=== PATIENT | female | born 1965 | race Caucasian/White ===

== ENCOUNTER 2017-10-02 06:31 | Emergency (ER) | payer SELFPAY ==
[~2017-10-02] VITALS: Ht 147.3 cm; Wt 77.6 kg
[2017-10-02] MEDS ORDERED: MORPHINE SULFATE 5 MG/ML VIAL IV ONE (07:30)
[2017-10-02] MEDS ORDERED: ONDANSETRON HCL INJ 2 MG/ML VIAL IV STA (07:30)
[2017-10-02] MEDS ORDERED: SODIUM CHLORIDE 0.9% 1000ML 1,000 ML IV STA (07:30)
[2017-10-02] MEDS ORDERED: KETOROLAC TROMETHAMINE 30 MG/ML VIAL IV STA (07:38)
[2017-10-02] MEDS ORDERED: MORPHINE SULFATE 2 MG/ML SYR IV STA (07:44)
[2017-10-02 08:10] LABS: BASOPHILS # (AUTO) 0.1 (0.0-0.1); BASOPHILS % 0.5 % (0.0-1.0); BILIRUBIN,URINE NEGATIVE (NEGATIVE); CLARITY,URINE CLOUDY (CLEAR); COLOR,URINE YELLOW (YELLOW); EOSINOPHILS # (AUTO) 0.1 (0.0-0.4); HEMATOCRIT 39.9 % (34.2-44.1); HEMOGLOBIN 13.3 g/dL (12.0-16.0); KETONES,URINE TRACE (NEGATIVE); LEUKOCYTE ESTERASE ,URINE NEGATIVE (NEGATIVE); LYMPHOCYTES # (AUTO) 1.2 (1.0-3.2); LYMPHOCYTES % 12.8 % (18.0-39.1); MEAN CORPUSCULAR HEMOGLOBIN 32.3 pg (28-32); MEAN CORPUSCULAR HGB CONC 33.3 g/dL (31-35); MEAN CORPUSCULAR VOLUME 96.8 fL (81-99); MONOCYTES # (AUTO) 0.4 (0.2-0.8); MONOCYTES % 4.6 % (4.4-11.3); NEUTROPHILS # (AUTO) 7.7 (2.1-6.9); NEUTROPHILS % 80.5 % (38.7-80.0); NITRITE,URINE NEGATIVE (NEGATIVE); PLATELET COUNT 234 x10e3/uL (140-360); RED BLOOD COUNT 4.12 x10e6/uL (3.6-5.1); RED CELL DISTRIBUTION WIDTH 12.8 % (11.7-14.4); URINE UROBILINOGEN 0.2 mg/dL (0.2 - 1)
[2017-10-02 08:13] LABS: PROTEIN,URINE DIPSTICK 1+ (NEGATIVE)
[2017-10-02 08:20] LABS: INR 0.91; PROTHROMBIN TIME 12.7 seconds (11.9-14.5)
--- NOTE | 2017-10-02 08:23 | Diagnostic Imaging Report ---
PROCEDURE: CT ABDOMEN AND PELVIS WITHOUT CONTRAST COMPARISON:None. INDICATIONS:Right flank pain TECHNIQUE: Stone protocol Volumetric CT abdomen and pelvis. No intravenous or enteric contrast. Multiplanar reformatted images. DLP: 587.38 FINDINGS: Mild bibasilar subsegmental atelectasis. Mild vascular congestion. No pleural effusions. Normal heart size. Liver: Midclavicular craniocaudal span 19 cm. Otherwise, normal. Gallbladder: Normal Pancreas: Normal Spleen: Normal Adrenal glands: Normal Urinary bladder: Decompressed by Grover catheter Uterus and adnexa: Calcified uterine fibroids. Otherwise, normal Kidneys: Right: Mild caliectasis and trace hydroureter. 3 mm stone in the distal right ureter (image 153, series 3) approximately 2.5 cm from the urinary bladder. The stone does not completely fill the ureter, suggesting stone fragmentation. Otherwise, normal. No additional stones. Left: Normal. No stones. Bowel: Normal caliber. Normal appendix. Peritoneum: Normal Skeleton: Intact. Multilevel degenerative disc disease most notable at L2-L3 there is near-complete loss of disc space height. Soft tissues: Normal CONCLUSION: 1. 3 mm stone in the distal right ureter. The stone does not completely fill the ureter, suggesting stone fragmentation. 2. Hepatomegaly. Dictated by: Kenneth Gregory M.D. on 10/02/2017 at 8:33 Electronically approved by: Kenneth Gregory M.D. on 10/02/2017 at 8:33
[2017-10-02 08:24] LABS: AMORPHOUS SEDIMENT,URINE MODERATE (FEW); BACTERIA,URINE MODERATE /HPF; EPITHELIAL CELLS,URINE FEW /LPF; RBC,URINE >50 /HPF (0-5)
[2017-10-02 08:30] LABS: ALANINE AMINOTRANSFERASE 33 IU/L (0-55); ALBUMIN 3.8 g/dL (3.5-5.0); ALBUMIN/GLOBULIN RATIO 1.1 (0.8-2.0); ALKALINE PHOSPHATASE 56 IU/L (40-150); ANION GAP 14.7 mmol/L (8-16); BLOOD UREA NITROGEN 13 mg/dL (7-26); BUN/CREATININE RATIO 15 (6-25); CALCIUM 8.8 mg/dL (8.4-10.2); CARBON DIOXIDE 24 mmol/L (22-29); CHLORIDE 106 mmol/L (98-107); CREATININE, SERUM 0.86 mg/dL (0.57-1.11); EST GLOMERULAR FILTRATION RATE > 60 ML/MIN (60-); GLUCOSE 178 mg/dL (74-118); LIPASE 16 U/L (8-78); POTASSIUM 3.7 mmol/L (3.5-5.1); SODIUM 141 mmol/L (136-145)
[2017-10-02] MEDS ORDERED: CEFTRIAXONE SOD 1 GM VIAL IV SCH (08:45)
[2017-10-02] MEDS ORDERED: TYLENOL WITH C1 EACH PO (12:30)
[2017-10-02] MEDS ORDERED: PROMETHAZINE HC25 M1 PO (12:31)
[2017-10-02] MEDS ORDERED: CIPRO500 MG PO (12:31)
[2017-10-02] MEDS ORDERED: FLOMAX0.4 MG PO (12:31)
== END 2017-10-02 13:15 | disposition home or self-care (01) ==
LOC: ER 06:31
DX: R11.2 Nausea with vomiting, unspecified (principal); R10.9 Unspecified abdominal pain; N20.1 Calculus of ureter; N30.91 Cystitis, unspecified with hematuria; I10 Essential (primary) hypertension; E11.9 Type 2 diabetes mellitus without complications; E78.5 Hyperlipidemia, unspecified
CPT/HCPCS: 36415; 74176; 80053; 81001; 83690; 84702; 85025; 85610; 99284; J0696; J1885; J2270; J2405; J7030

== ENCOUNTER 2017-11-26 15:16 | Observation (INO) | payer SELFPAY ==
[~2017-11-26] VITALS: Ht 147.3 cm; Wt 77.6 kg
[~2017-11-26 15:16] MED LIST: CIPRO500 MG PO; FLOMAX0.4 MG PO; PROMETHAZINE HC25 M1 PO; TYLENOL WITH C1 EACH PO
--- OUTSIDE RECORDS SUMMARY | 2017-11-26 15:17 | XMS REPORT | Continuity of Care Document ---
Author Author [facility] Organization [facility] Address [address] [place] [address] Phone Unavailable Care Team Providers Care Microbiology Soil Scientist Name Role Phone NO, PCP PCP Unavailable Advance Directives No advance directive information available. Problems No problem information available. Medications Current Home Medications Medication Dose Units Route Directions Days Qty Instructions Start Date Acetaminophen With Codeine (Tylenol With Codeine #3 Tablet) 1 Each Tablet 300 Mg Oral Every 6 Hours for Severe Pain 15 Tab 10/02/17 Ciprofloxacin Hcl (Cipro) 500 Mg Tablet 500 Mg Oral Twice A Day 10 Days 20 Tab 10/02/17 Promethazine Hcl 25 Mg Tablet 25 Mg Oral Every 6 Hours as needed for Nausea 20 Tab 10/02/17 Tamsulosin Hcl (Flomax*) 0.4 Mg Cap 0.4 Mg Oral Daily 10 Cap Social History No social history information available. Hospital Discharge Instructions No hospital discharge instruction information available. Plan of Care Discharge Date 10/02/17 1:15pm Disposition HOME, SELF-CARE Condition at Discharge Stable Instructions/Education Provided Kidney Stones Urinary Tract Infection - Women Forms Provided Work/School Excuse Prescriptions See Medication Section Referrals TERESO SMITH MD Address: [address] [place] [address] Additional Instructions/Education TAKE PRESCRIPTIONS DIRECTED. INCREASE FLUIDS. REST. CALL TODAY FOR APPOINTMENT WITH DR SMITH UROLOGY. STRAIN ALL URINE AND BRING STONE TO UROLOGY APPOINTMENT Functional Status No functional status information available. Allergies, Adverse Reactions, Alerts Allergen Type Severity Reaction Status Last Updated PENICILLIN Allergy Intermediate Active 10/02/17 Immunizations No immunization information available. Vital Signs Acute Vital Signs Vital Response Date/Time Height 4 ft 10 in 10/02/2017 6:41am Weight 171 lb 10/02/2017 6:41am Body Mass Index 35.7 kg/m^2 10/02/2017 6:41am Results Laboratory Results Test Name Result Units Flags Reference Collection Date/Time Result Date/ Time Comments White Blood Count 9.61 x10e3/uL 4.8-10.8 10/02/2017 7:00am 10/02/2017 8 :13am Red Blood Count 4.12 x10e6/uL 3.6-5.1 10/02/2017 7:00am 10/02/2017 8: 13am Hemoglobin 13.3 g/dL 12.0-16.0 10/02/2017 7:00am 10/02/2017 8:13am Hematocrit 39.9 % 34.2-44.1 10/02/2017 7:00am 10/02/2017 8:13am Mean Corpuscular Volume 96.8 fL 81-99 10/02/2017 7:00am 10/02/2017 8: 13am Mean Corpuscular Hemoglobin 32.3 pg H 28-32 10/02/2017 7:00am 2017 8:13am Mean Corpuscular Hemoglobin Concent 33.3 g/dL 31-35 10/02/2017 7:00am 10/02/2017 8:13am Red Cell Distribution Width 12.8 % 11.7-14.4 10/02/2017 7:00am 2017 8:13am Platelet Count 234 x10e3/uL 140-360 10/02/2017 7:00am 10/02/2017 8: 13am Neutrophils (%) (Auto) 80.5 % H 38.7-80.0 10/02/2017 7:00am 10/02/2017 8 :13am Lymphocytes (%) (Auto) 12.8 % L 18.0-39.1 10/02/2017 7:00am 10/02/2017 8 :13am Monocytes (%) (Auto) 4.6 % 4.4-11.3 10/02/2017 7:00am 10/02/2017 8: 13am Eosinophils (%) (Auto) 1.0 % 0.0-6.0 10/02/2017 7:00am 10/02/2017 8: 13am Basophils (%) (Auto) 0.5 % 0.0-1.0 10/02/2017 7:00am 10/02/2017 8:13am IM GRANULOCYTES % 0.6 % 0.0-1.0 10/02/2017 7:00am 10/02/2017 8:13am Neutrophils # (Auto) 7.7 H 2.1-6.9 10/02/2017 7:00am 10/02/2017 8: 13am Lymphocytes # (Auto) 1.2 1.0-3.2 10/02/2017 7:00am 10/02/2017 8:13am Monocytes # (Auto) 0.4 0.2-0.8 10/02/2017 7:00am 10/02/2017 8:13am Eosinophils # (Auto) 0.1 0.0-0.4 10/02/2017 7:00am 10/02/2017 8:13am Basophils # (Auto) 0.1 0.0-0.1 10/02/2017 7:00am 10/02/2017 8:13am Absolute Immature Granulocyte (auto 0.06 x10e3/uL 0-0.1 10/02/2017 7: 00am 10/02/2017 8:13am Prothrombin Time 12.7 seconds 11.9-14.5 10/02/2017 7:00am 10/02/2017 8: 27am Prothromb Time International Ratio 0.91 10/02/2017 7:00am 2017 8:27am Oral Anticoagulant Therapy INR Values: 1. Low Intensity Therapy 1.5 - 2.0 2. Moderate Intensity Therapy 2.0 - 3.0 3. High Intensity Therapy(1) 2.5 - 3.5 4. High Intensity Therapy(2) 3.0 - 4.0 5. Panic Value INR > 5.0 Urine Color YELLOW YELLOW 10/02/2017 7:00am 10/02/2017 8:13am Urine Clarity CLOUDY H CLEAR 10/02/2017 7:00am 10/02/2017 8:13am Urine Specific [place] 1.030 H 1.010-1.025 10/02/2017 7:00am 2017 8:13am Urine pH 5 5 - 7 10/02/2017 7:00am 10/02/2017 8:13am Urine Leukocyte Esterase NEGATIVE NEGATIVE 10/02/2017 7:00am 2017 8:13am Urine Nitrite NEGATIVE NEGATIVE 10/02/2017 7:00am 10/02/2017 8:13am Urine Protein 1+ H NEGATIVE 10/02/2017 7:00am 10/02/2017 8:13am Urine Glucose (UA) NEGATIVE NEGATIVE 10/02/2017 7:00am 10/02/2017 8: 13am Urine Ketones TRACE H NEGATIVE 10/02/2017 7:00am 10/02/2017 8:13am Urine Urobilinogen 0.2 mg/dL 0.2 - 1 10/02/2017 7:00am 10/02/2017 8: 13am Urine Bilirubin NEGATIVE NEGATIVE 10/02/2017 7:00am 10/02/2017 8: 13am Urine Blood 4+ H NEGATIVE 10/02/2017 7:00am 10/02/2017 8:13am Urine WBC 6-10 /HPF H 0-5 10/02/2017 7:00am 10/02/2017 8:24am Urine RBC >50 /HPF H 0-5 10/02/2017 7:00am 10/02/2017 8:24am Urine Bacteria MODERATE /HPF H NONE 10/02/2017 7:00am 10/02/2017 8:24am Urine Epithelial Cells FEW /LPF NONE 10/02/2017 7:00am 10/02/2017 8: 24am Urine Amorphous Sediment MODERATE H FEW 10/02/2017 7:00am 10/02/2017 8 :24am Sodium Level 141 mmol/L 136-145 10/02/2017 7:00am 10/02/2017 8:31am Potassium Level 3.7 mmol/L 3.5-5.1 10/02/2017 7:00am 10/02/2017 8:31am Chloride Level 106 mmol/L 98-107 10/02/2017 7:00am 10/02/2017 8:31am Carbon Dioxide Level 24 mmol/L 22-29 10/02/2017 7:00am 10/02/2017 8: 31am Anion Gap 14.7 mmol/L 8-16 10/02/2017 7:00am 10/02/2017 8:31am Blood Urea Nitrogen 13 mg/dL 7-26 10/02/2017 7:00am 10/02/2017 8:31am Creatinine 0.86 mg/dL 0.57-1.11 10/02/2017 7:00am 10/02/2017 8:31am BUN/Creatinine Ratio 15 6-25 10/02/2017 7:00am 10/02/2017 8:31am Estimat Glomerular Filtration Rate > 60 ML/MIN 60- 10/02/2017 7:00am 8:31am Ranges were taken from the National Kidney Disease Education Program and the National Kidney Foundation literature. Reference ranges: 60 or greater: Normal 16-59 (for 3 consecutive months): Chronic kidney disease 15 or less: Kidney failure Glucose Level 178 mg/dL H 74-118 10/02/2017 7:00am 10/02/2017 8:31am Calcium Level 8.8 mg/dL 8.4-10.2 10/02/2017 7:00am 10/02/2017 8:31am Total Bilirubin 0.5 mg/dL 0.2-1.2 10/02/2017 7:00am 10/02/2017 8:31am Aspartate Amino Transf (AST/SGOT) 19 IU/L 5-34 10/02/2017 7:00am 2017 8:31am Alanine Aminotransferase (ALT/SGPT) 33 IU/L 0-55 10/02/2017 7:00am 09/2017 8:31am Total Protein 7.3 g/dL 6.5-8.1 10/02/2017 7:00am 10/02/2017 8:31am Albumin 3.8 g/dL 3.5-5.0 10/02/2017 7:00am 10/02/2017 8:31am Globulin 3.5 g/dL 2.3-3.5 10/02/2017 7:00am 10/02/2017 8:31am Albumin/Globulin Ratio 1.1 0.8-2.0 10/02/2017 7:00am 10/02/2017 8: 31am Alkaline Phosphatase 56 IU/L 40-150 10/02/2017 7:00am 10/02/2017 8: 31am Lipase 16 U/L 8-78 10/02/2017 7:00am 10/02/2017 8:31am Human Chorionic Gonadotropin, Qual NEGATIVE NEGATIVE 10/02/2017 7: 00am 10/02/2017 8:30am Procedures Procedure Status Date Provider(s) CT of abdomen and pelvis without contrast Active 10/02/17 ASUNCION BARRETT MD Encounters Encounter Location Arrival/Admit Date Discharge/Depart Date Attending Provider Departed Emergency Room [facility] 10/02/17 6:31am 1:15pm ASUNCION BARRETT MD
--- OUTSIDE RECORDS SUMMARY | 2017-11-26 15:17 | XMS REPORT ---
Author Author [facility] Address Unknown Phone Unavailable Care Team Providers Care Contour Stitcher Name Role Phone ASUNCION BARRETT Unavailable Unavailable Problems This patient has no known problems. Allergies, Adverse Reactions, Alerts This patient has no known allergies or adverse reactions. Medications This patient has no known medications. Results Test Description Test Time Test Comments Text Results Atomic Results Result Comments CT ABDOMEN/PELVIS WO [place] [address] Patient Name: KAMINI BAEZ MR #: [id number] : 1965 Age/Sex: 52/F Req #: [id number] Adm Physician: Ordered by: ASUNCION BARRETT MD Report #: [id number] Location: ER Room/Bed: Procedure: [id number] CT/CT ABDOMEN/PELVIS WO Exam Date: 10/02/17 Exam Time: 0750 REPORT STATUS: Signed PROCEDURE: CT ABDOMEN AND PELVIS WITHOUT CONTRAST COMPARISON: None. INDICATIONS: Right flank pain TECHNIQUE: Stone protocol Volumetric CT abdomen and pelvis. No intravenous or enteric contrast. Multiplanar reformatted images. DLP: 587.38 FINDINGS: Mild bibasilar subsegmental atelectasis. Mild vascular congestion. No pleural effusions. Normal heart size. Liver: Midclavicular craniocaudal span 19 cm. Otherwise, normal. Gallbladder: Normal Pancreas: Normal Spleen: Normal Adrenal glands: Normal Urinary bladder: Decompressed by Grover catheter Uterus and adnexa: Calcified uterine fibroids. Otherwise, normal Kidneys: Right: Mild caliectasis and trace hydroureter. 3 mm stone in the distal right ureter (image 153, series 3) approximately 2.5 cm from the urinary bladder. The stone does not completely fill the ureter, suggesting stone fragmentation. Otherwise, normal. No additional stones. Left: Normal. No stones. Bowel: Normal caliber. Normal appendix. Peritoneum: Normal Skeleton: Intact. Multilevel degenerative disc disease most notable at L2-L3 there is near-complete loss of disc space height. Soft tissues: Normal CONCLUSION: 1. 3 mm stone in the distal right ureter. The stone does not completely fill the ureter, suggesting stone fragmentation. 2. Hepatomegaly. Dictated by: Liliana Gregory M.D. on 10/02/2017 at 8:33 Electronically approved by: Liliana Gregory M.D. on 10/02/2017 at 8:33 Dictated By : LILIANA GREGORY MD 2 Transcribed By: ROCÍO on 10/02/17832 COPY TO: ASUNCION BARRETT MD
[2017-11-26] MEDS ORDERED: SODIUM CHLORIDE 0.9% 1000ML 1,000 ML IV STA ×2 (16:20→18:03)
[2017-11-26] MEDS ORDERED: IBUPROFEN 400 MG TAB PO STA (16:20)
[2017-11-26 16:41] LABS: BILIRUBIN,URINE NEGATIVE (NEGATIVE); CLARITY,URINE HAZY (CLEAR); COLOR,URINE YELLOW (YELLOW); KETONES,URINE NEGATIVE (NEGATIVE); LEUKOCYTE ESTERASE ,URINE 1+ (NEGATIVE); NITRITE,URINE NEGATIVE (NEGATIVE); PROTEIN,URINE DIPSTICK 1+ (NEGATIVE); URINE UROBILINOGEN 0.2 mg/dL (0.2 - 1)
--- NOTE | 2017-11-26 16:46 | Diagnostic Imaging Report ---
PROCEDURE: X-RAY CHEST, TWO VIEWS COMPARISON: None. INDICATIONS: LOW BLOOD PRESSURE FINDINGS: LUNGS: Small focus of atelectasis/scar in the base of the right lung. No consolidation or mass. Vascular markings are normal. PLEURA: No effusions or pneumothorax. HEART \T\ MEDIASTINUM: The heart is within normal size-limits. BONES \T\ SOFT TISSUES: No focal osseous lesions. Soft tissues are unremarkable. CONCLUSION: No acute thoracic abnormality. Dictated by: Milena Smith M.D. on 11/26/2017 at 16:46 Electronically approved by: Milena Smith M.D. on 11/26/2017 at 16:46
[2017-11-26 16:55] LABS: EPITHELIAL CELLS,URINE MANY /LPF
[2017-11-26 16:57] LABS: BACTERIA,URINE MODERATE /HPF
[2017-11-26 17:15] LABS: BASOPHILS # (AUTO) 0.1 (0.0-0.1); BASOPHILS % 0.8 % (0.0-1.0); EOSINOPHILS % 0.2 % (0.0-6.0); HEMATOCRIT 39.6 % (34.2-44.1); HEMOGLOBIN 13.9 g/dL (12.0-16.0); LYMPHOCYTES # (AUTO) 0.2 (1.0-3.2); LYMPHOCYTES % 2.9 % (18.0-39.1); MEAN CORPUSCULAR HGB CONC 35.1 g/dL (31-35); MEAN CORPUSCULAR VOLUME 91.2 fL (81-99); MONOCYTES # (AUTO) 0.2 (0.2-0.8); MONOCYTES % 3.6 % (4.4-11.3); NEUTROPHILS % 90.7 % (38.7-80.0); PLATELET COUNT 204 x10e3/uL (140-360); RED BLOOD COUNT 4.34 x10e6/uL (3.6-5.1); RED CELL DISTRIBUTION WIDTH 12.5 % (11.7-14.4)
[2017-11-26 17:20] LABS: INR 1.16; PROTHROMBIN TIME 13.9 seconds (11.9-14.5)
[2017-11-26 17:21] LABS: PARTIAL THROMBOPLASTIN TIME 24.9 seconds (23.8-35.5)
[2017-11-26 17:26] LABS: CREATINE KINASE 73 IU/L (29-168)
[2017-11-26 17:28] LABS: ALBUMIN 3.3 g/dL (3.5-5.0); ALBUMIN/GLOBULIN RATIO 0.7 (0.8-2.0); ANION GAP 17.3 mmol/L (8-16); CALCIUM 9.5 mg/dL (8.4-10.2); CREATININE, SERUM 1.31 mg/dL (0.57-1.11); POTASSIUM 3.3 mmol/L (3.5-5.1)
[2017-11-26] MEDS ORDERED: CEFTRIAXONE SOD 1 GM VIAL IV SCH (18:15)
[2017-11-26 18:47] LABS: BAND NEUTROPHILS % (MANUAL) 13 %; LYMPHOCYTES % (MANUAL) 2 % (19-48); MONOCYTES % (MANUAL) 5 % (3.4-9.0); NEUTROPHILS % (MANUAL) 79 % (40-74)
[2017-11-26 18:49] LABS: PLATELET ESTIMATE ADEQUATE; PLATELET MORPHOLOGY COMMENT NORMAL; RBC MORPHOLOGY COMMENT NORMAL
[2017-11-26] MEDS ORDERED: ONDANSETRON HCL INJ 2 MG/ML VIAL IV PRN (19:15)
[2017-11-26] MEDS ORDERED: MORPHINE SULFATE 2 MG/ML SYR IV PRN (19:15)
[2017-11-26] MEDS: SODIUM CHLORIDE 0.9% 1000ML 1,000 ML IV SCH (20:35)
[2017-11-26 21:56] VITALS: BP 97/50
[2017-11-26 22:00] VITALS: BP 97/50
[2017-11-26 23:30] VITALS: BP 97/50
[2017-11-27] VITALS (7 sets, daily range): BP systolic 81–104; BP diastolic 44–59
[2017-11-27] MEDS ORDERED: CITALOPRAM HBR20 MG PO (00:27)
[2017-11-27] MEDS ORDERED: LISINOPRIL10 MG PO (00:27)
[2017-11-27] MEDS ORDERED: LEVOTHYROXINE75 MCG PO (00:27)
[2017-11-27] MEDS ORDERED: METFORMIN HCL850 MG PO (00:27)
[2017-11-27] MEDS: SODIUM CHLORIDE 0.9% 1000ML 1,000 ML IV SCH ×3 (03:59→15:14)
[2017-11-27] MEDS: CEFTRIAXONE SOD 1 GM VIAL IV SCH ×2 (05:26→17:09)
[2017-11-27 07:17] LABS: BASOPHILS % 0.6 % (0.0-1.0); HEMATOCRIT 33.1 % (34.2-44.1); HEMOGLOBIN 11.3 g/dL (12.0-16.0); LYMPHOCYTES # (AUTO) 0.6 (1.0-3.2); LYMPHOCYTES % 13.1 % (18.0-39.1); MEAN CORPUSCULAR HGB CONC 34.1 g/dL (31-35); MEAN CORPUSCULAR VOLUME 93.8 fL (81-99); MONOCYTES # (AUTO) 0.3 (0.2-0.8); MONOCYTES % 7.3 % (4.4-11.3); NEUTROPHILS # (AUTO) 3.6 (2.1-6.9); NEUTROPHILS % 77.1 % (38.7-80.0); PLATELET COUNT 161 x10e3/uL (140-360); RED BLOOD COUNT 3.53 x10e6/uL (3.6-5.1); RED CELL DISTRIBUTION WIDTH 12.8 % (11.7-14.4)
[2017-11-27 07:46] LABS: ANION GAP 12.4 mmol/L (8-16); CALCIUM 8.3 mg/dL (8.4-10.2); CREATININE, SERUM 0.98 mg/dL (0.57-1.11); POTASSIUM 4.4 mmol/L (3.5-5.1)
--- NOTE | 2017-11-27 10:56 | History and Physical ---
PRESENTING COMPLAINT: Lightheadedness and about to fall with low blood pressure. HISTORY OF PRESENT ILLNESS: A 52-year-old female was admitted from the ER with complaints of lightheadedness with low blood pressure. The patient states she had a cough with left earache. She was seen by Dr. Pineda, ENT specialist at [place] 4 days ago. She was prescribed some antibiotic along with ear drops. The patient did not improve. She had fever of 100.2 yesterday. She went to see Dr. Pineda at his office. At that time, she was found to have low blood pressure. She felt lightheaded. The patient was brought to the ER. The patient did not have any similar episode in the past. She denied any chest pain, palpitations, or shortness of breath along with these symptoms. The patient follows up with her PCP, Dr. Derek Schwartz. Was seen less than 1 month ago at the office as per the patient's statement. The patient denies any other complaints at the present time. She had mild dysuria. No hematuria. No diarrhea. REVIEW OF SYSTEMS CONSTITUTIONAL: Fever of 100.2 at home yesterday as per the patient's statement. HEENT: No visual disturbance. Left earache status post ENT evaluation. No discharge from the left ear. No nasal congestion. CARDIOVASCULAR: No chest pain, palpitations or shortness of breath. PULMONARY: No cough. No hemoptysis. GI: No diarrhea. No bloody stool or black stool. : No dysuria. No hematuria. The patient is postmenopausal. MUSCULOSKELETAL: Significant for . No joint pain. No joint swelling. No skin rash. No swelling. NEUROLOGICAL: Lightheadedness at presentation as per HPI. PAST MEDICAL ILLNESS: Nephrolithiasis in October [address] scan, hypertension, diabetes mellitus, type 2, hypothyroidism. PAST SURGERIES: Appendectomy, colonoscopy, knee surgery, sinus surgery, tonsillectomy. ALLERGIES: PENICILLIN AND SULFA. EXACT REACTION NOT KNOWN. HOME MEDICATIONS: As per med reconciliation sheet. SOCIAL HISTORY: The patient lives at home with her family, and father. She does not have any children. HABITS: No smoking, drinking or substance abuse history. FAMILY HISTORY: Negative for CAD. COMPUTER AIDED DESIGN OPERATOR HISTORY: The patient is postmenopausal. No children. She was never . She does not have any children. No history of miscarriage in the past. PHYSICAL EXAMINATION VITALS: BP 86/51, pulse 53, temp 96.2, T-max 99.1, respirations 16, SpO2 98% on room air. GENERAL: Alert and oriented and in no acute distress. HEENT: No pallor. NECK: No JVD. No carotid bruits. No lymphadenopathy. No thyromegaly. HEART: S1 and S2 regular. No murmurs. LUNGS: Clear to auscultation. ABDOMEN: Soft and nontender. No palpable mass. EXTREMITIES: No edema, cyanosis or clubbing. NEUROLOGICAL: Motor grossly equal on both sides. LABS: CBC: WBC 6.6, hemoglobin 13.92 and came down to 11.3, hematocrit 39, and platelets 204,000. MCV 91. Neutrophils 90, lymphocytes 2.9. PT 18.9, INR 1.16 and PTT 24.9. Chemistry panel: Sodium 137, potassium 4.4, chloride 102, CO2 27, anion gap 8, BUN 26, creatinine 0.98, glucose 221. Lactic acid 9.8. Calcium 8.3. Total bilirubin 0.5, AST 54, ALT 53, alk phos 59. Total protein 7.9, albumin 3.3, globulin 4.6. Urinalysis with protein 1+, ketones negative, nitrite negative, leukocyte esterase 1+, wbcs 11-20, rbcs 11-20, bacteria moderate. RADIOLOGICAL DATA: Chest x-ray single view with no acute abnormality. EKG was normal sinus rhythm with a rate of 85 beats per minute. No significant ST-T changes. ASSESSMENT AND PLAN 1. Lightheadedness with about to fall due to near syncope: Etiology not clear. The patient had a low-grade fever, but she is not septic. 2. The patient has urinary tract infection on urinalysis: Will continue the patient on intravenous Levaquin. Follow the culture report. 3. Sinus bradycardia with hypotension: Electrocardiogram did not show any significant abnormality. Will request a cardiology evaluation. Troponin was 0.001 at presentation. 4. Nephrolithiasis by history: The patient's computerized tomography scan showed urethral stone in October. Will have an ultrasound of the kidney and urinary bladder today. If needed, will consult urologist. 5. Dehydration: Continue intravenous hydration. 6. Diabetes mellitus, type 2: Continue the patient on sliding scale insulin along with regular medications. I will hold metformin for now. 7. Hypertension: Will hold antihypertensives in view of low blood pressure. 8. Deep venous thrombosis prophylaxis: Would suggest ambulation. Will start the patient on Lovenox subcutaneously. 9. Discharge planning: Will discharge the patient if cleared by the payroll services analyst tomorrow morning. Job#: [id number] ALAINA
--- NOTE | 2017-11-27 11:01 | Diagnostic Imaging Report ---
Examination: CT BRAIN WITHOUT CONTRAST History:Syncope. Dehydration. Generalized weakness. Comparison studies:None Technique: Axial images were obtained from the skull base to the vertex. Coronal and sagittal images reconstructed from the axial data. Intravenous contrast: None Findings: Scalp: No abnormalities. Bones: No fractures, blastic or lytic lesions. Brain sulci: Appropriate for age. Ventricles: Normal in size and configuration. No hydrocephalus. Extra-axial space: No abnormalities. Parenchyma: No abnormal densities. No masses, hemorrhage, or acute or chronic cortical based vascular insults.. Sellar/suprasellar region: No abnormalities. Craniocervical junction: Patent foramen magnum. No Chiari one malformation. Incidental findings: None. Impression: No intracranial abnormalities. Signed by: Dr. Maria M Centeno M.D. on 11/27/2017 10:57 AM
--- NOTE | 2017-11-27 12:31 | Diagnostic Imaging Report ---
PROCEDURE:US RETROPERITONEAL ( KIDNEY ). COMPARISON:CT abdomen and pelvis 10/02/2017. INDICATIONS:UTI/STONE TECHNIQUE: Mccabe-scale and color sonographic images of the bilateral kidneys and bladder where obtained in transverse and longitudinal planes. FINDINGS: RIGHT KIDNEY: 10.9 x 5.4 x 5.8 cm, cortex 2.2 cm Cysts: None. Solid masses: None. Stones: None. Hydronephrosis: None. Echogenicity: Normal. LEFT KIDNEY: 12.1 x 4.4 x 5.8 cm, cortex 1.6 cm Cysts: None. Solid masses: None. Stones: None. Hydronephrosis: None. Echogenicity: Normal. Bladder: Normal. Bilateral urinary jets are visualized. CONCLUSION: 1. Normal kidneys. 2. Incidental finding of diffuse hepatic steatosis. Dictated by: Prosper East M.D. on 11/27/2017 at 12:32 Electronically approved by: Prosper East M.D. on 11/27/2017 at 12:32
[2017-11-27] MEDS ORDERED: DEXTROSE 50% SYRINGE 50 ML IV PRN (14:15)
[2017-11-27] MEDS ORDERED: MORPHINE SULFATE 2 MG/ML SYR IV PRN (15:15)
[2017-11-27] MEDS: INSULIN LISPRO 100 UNIT/1 ML 3ML VIAL SQ SCH ×2 (17:09→20:22)
[2017-11-27] MEDS: ENOXAPARIN SOD INJ 40 MG/0.4 ML SYR SC SCH (17:09)
--- NOTE | 2017-11-27 18:52 | Consultation ---
DATE OF CONSULTATION: November 27, 2017 CARDIOLOGY CONSULTATION CHIEF COMPLAINT: The patient is a 52-year-old woman with dizziness and lightheadedness. HISTORY OF PRESENT ILLNESS: The patient is a 52-year-old woman who came to the emergency room with lightheadedness and low blood pressure. The patient reports low-grade fever and some coughing. The patient has no nausea, no vomiting, no diarrhea, no chest pain, no shortness of breath. PAST MEDICAL HISTORY: 1. Kidney stones. 2. Hypertension. 3. Diabetes mellitus. 4. Hypothyroidism. HOME MEDICATIONS: Synthroid, lisinopril, metformin. SOCIAL HISTORY: The patient does not drink and does not smoke. FAMILY HISTORY: There is no known family history of coronary artery disease. PHYSICAL EXAMINATION GENERAL: The patient is a well-nourished, well-developed female in no distress. VITAL SIGNS: Temperature 97.2, blood pressure 104/54. HEENT: The patient's cranium was normocephalic and atraumatic. Extraocular muscles were intact. Sclerae were anicteric. Pupils were equal, round, and reactive to light. NECK: Supple. No jugular venous distention. CHEST: Clear to auscultation and percussion. CARDIAC: Demonstrated normal S1 and S2 with no murmurs, rubs or gallops. ABDOMEN: Demonstrated good bowel sounds, no tenderness, and no masses. EXTREMITIES: No cyanosis, clubbing or edema. NEUROLOGIC: The patient was alert and oriented x3. Cranial nerves II-XII are intact. Motor strength was +5/+5 in all limbs. The patient's EKG demonstrated normal sinus rhythm with nonspecific ST and T wave changes. The patient's echocardiogram demonstrated normal left ventricular size and function. The patient's carotid Duplex report demonstrated no stenosis. IMPRESSION AND PLAN: The patient is a 52-year-old woman with lightheadedness and low blood pressure. This patient's symptoms appear to be consistent with volume depletion. I feel that the patient should be hydrated. If the patient's symptoms improve with hydration, then no further cardiac workup will be required. Job#: [id number] GH cc:MEET JC MD
[2017-11-27] MEDS: TAMSULOSIN HCL 0.4 MG CAP PO SCH (20:21)
[2017-11-27] MEDS: ATORVASTATIN 10 MG TAB PO SCH (20:21)
[2017-11-28] VITALS (9 sets, daily range): BP systolic 97–116; BP diastolic 53–59
[2017-11-28] MEDS: SODIUM CHLORIDE 0.9% 1000ML 1,000 ML IV SCH ×4 (00:56→21:43)
[2017-11-28] MEDS: CEFTRIAXONE SOD 1 GM VIAL IV SCH ×2 (05:29→17:41)
[2017-11-28] MEDS: LEVOTHYROXINE SODIUM 75 MCG TAB PO SCH (05:30)
[2017-11-28 07:17] LABS: BASOPHILS # (AUTO) 0.1 (0.0-0.1); BASOPHILS % 0.6 % (0.0-1.0); EOSINOPHILS % 0.5 % (0.0-6.0); HEMATOCRIT 32.9 % (34.2-44.1); HEMOGLOBIN 11.1 g/dL (12.0-16.0); LYMPHOCYTES # (AUTO) 1.3 (1.0-3.2); LYMPHOCYTES % 14.2 % (18.0-39.1); MEAN CORPUSCULAR HEMOGLOBIN 31.4 pg (28-32); MEAN CORPUSCULAR HGB CONC 33.7 g/dL (31-35); MEAN CORPUSCULAR VOLUME 93.2 fL (81-99); MONOCYTES # (AUTO) 0.5 (0.2-0.8); NEUTROPHILS # (AUTO) 6.8 (2.1-6.9); NEUTROPHILS % 76.8 % (38.7-80.0); PLATELET COUNT 185 x10e3/uL (140-360); RED BLOOD COUNT 3.53 x10e6/uL (3.6-5.1); RED CELL DISTRIBUTION WIDTH 12.9 % (11.7-14.4)
[2017-11-28 07:44] LABS: % IRON SATURATION 6 % (15-50); ALANINE AMINOTRANSFERASE 41 IU/L (0-55); ALBUMIN 2.3 g/dL (3.5-5.0); ALBUMIN/GLOBULIN RATIO 0.7 (0.8-2.0); ALKALINE PHOSPHATASE 42 IU/L (40-150); ANION GAP 11.8 mmol/L (8-16); BLOOD UREA NITROGEN 15 mg/dL (7-26); BUN/CREATININE RATIO 16 (6-25); CALCIUM 8.3 mg/dL (8.4-10.2); CARBON DIOXIDE 24 mmol/L (22-29); CHLORIDE 103 mmol/L (98-107); CHOL/HDL RATIO 18.6 (3.0-3.6); CHOLESTEROL 167 MD/DL (0-199); CREATININE, SERUM 0.92 mg/dL (0.57-1.11); EST GLOMERULAR FILTRATION RATE > 60 ML/MIN (60-); GLUCOSE 176 mg/dL (74-118); HDL CHOLESTEROL 9 MG/DL (40-60); IRON 18 ug/dL (50-170); POTASSIUM 3.8 mmol/L (3.5-5.1); SODIUM 135 mmol/L (136-145); TOTAL IRON BINDING CAPACITY 277 ug/dL (261-478); TRANSFERRIN 198 mg/dL (180-382); TRIGLYCERIDES 573 MG/DL (0-149)
[2017-11-28 08:06] LABS: FERRITIN 436.86 ng/mL (4.63-204.00); HCG,QUANTITATIVE 1.23 mIU/mL (0-10); THYROID STIMULATING HORMONE 1.999 uIU/mL (0.350-4.940)
[2017-11-28] MEDS ORDERED: ACETAMINOPHEN 325 MG TAB PO PRN (08:45)
[2017-11-28] MEDS: PANTOPRAZOLE SOD 40 MG TABEC PO SCH (09:00)
[2017-11-28] MEDS ORDERED: ENOXAPARIN SOD INJ 60 MG/0.6 ML SYR SC SCH (09:00)
[2017-11-28] MEDS: INSULIN LISPRO 100 UNIT/1 ML 3ML VIAL SQ SCH ×4 (09:00→21:45)
[2017-11-28] MEDS: CITALOPRAM HYDROBROMIDE 20 MG TAB PO SCH (09:01)
[2017-11-28] MEDS: ASPIRIN 325 MG TAB PO SCH (09:01)
[2017-11-28 09:09] LABS: BAND NEUTROPHILS % (MANUAL) 2 %; EOSINOPHILS % (MANUAL) 1 % (0-7); LYMPHOCYTES % (MANUAL) 11 % (19-48); MONOCYTES % (MANUAL) 10 % (3.4-9.0); NEUTROPHILS % (MANUAL) 76 % (40-74)
[2017-11-28 09:10] LABS: PLATELET ESTIMATE ADEQUATE; PLATELET MORPHOLOGY COMMENT NORMAL; RBC MORPHOLOGY COMMENT NORMAL
[2017-11-28] MEDS: LEVOFLOXACIN 500MG/D5W 100ML 100 ML IV SCH (10:30)
[2017-11-28] MEDS: ENOXAPARIN SOD INJ 40 MG/0.4 ML SYR SC SCH (17:41)
[2017-11-28] MEDS: GEMFIBROZIL 600 MG TAB PO SCH (17:41)
[2017-11-28] MEDS ORDERED: GUAIFENESIN 200 MG/10 ML UDC PO PRN (18:15)
[2017-11-28] MEDS: TAMSULOSIN HCL 0.4 MG CAP PO SCH (21:44)
[2017-11-28] MEDS: ATORVASTATIN 10 MG TAB PO SCH (21:44)
[2017-11-29] VITALS: BP 89/52
[2017-11-29 00:40] VITALS: BP 89/52
[2017-11-29] MEDS: SODIUM CHLORIDE 0.9% 1000ML 1,000 ML IV SCH ×2 (03:46→09:32)
[2017-11-29 04:00] VITALS: BP 98/51
[2017-11-29] MEDS: CEFTRIAXONE SOD 1 GM VIAL IV SCH (06:04)
[2017-11-29] MEDS: LEVOTHYROXINE SODIUM 75 MCG TAB PO SCH (06:04)
[2017-11-29 07:30] LABS: BASOPHILS % 0.5 % (0.0-1.0); EOSINOPHILS # (AUTO) 0.1 (0.0-0.4); EOSINOPHILS % 1.3 % (0.0-6.0); HEMATOCRIT 31.3 % (34.2-44.1); HEMOGLOBIN 10.5 g/dL (12.0-16.0); LYMPHOCYTES # (AUTO) 1.8 (1.0-3.2); LYMPHOCYTES % 22.6 % (18.0-39.1); MEAN CORPUSCULAR HEMOGLOBIN 31.9 pg (28-32); MEAN CORPUSCULAR HGB CONC 33.5 g/dL (31-35); MEAN CORPUSCULAR VOLUME 95.1 fL (81-99); MONOCYTES # (AUTO) 0.5 (0.2-0.8); MONOCYTES % 6.9 % (4.4-11.3); NEUTROPHILS # (AUTO) 5.1 (2.1-6.9); NEUTROPHILS % 64.9 % (38.7-80.0); PLATELET COUNT 196 x10e3/uL (140-360); RED BLOOD COUNT 3.29 x10e6/uL (3.6-5.1); RED CELL DISTRIBUTION WIDTH 13.2 % (11.7-14.4)
[2017-11-29] MEDS: GEMFIBROZIL 600 MG TAB PO SCH (07:30)
[2017-11-29] MEDS: PANTOPRAZOLE SOD 40 MG TABEC PO SCH (07:30)
[2017-11-29 07:51] VITALS: BP 97/51
[2017-11-29 07:52] LABS: ALANINE AMINOTRANSFERASE 31 IU/L (0-55); ALBUMIN/GLOBULIN RATIO 0.6 (0.8-2.0); ALKALINE PHOSPHATASE 40 IU/L (40-150); ANION GAP 11.6 mmol/L (8-16); BLOOD UREA NITROGEN 13 mg/dL (7-26); BUN/CREATININE RATIO 17 (6-25); CARBON DIOXIDE 24 mmol/L (22-29); CHLORIDE 105 mmol/L (98-107); CREATININE, SERUM 0.78 mg/dL (0.57-1.11); EST GLOMERULAR FILTRATION RATE > 60 ML/MIN (60-); GLUCOSE 139 mg/dL (74-118); POTASSIUM 3.6 mmol/L (3.5-5.1); SODIUM 137 mmol/L (136-145)
[2017-11-29] MEDS: ASPIRIN 325 MG TAB PO SCH (09:31)
[2017-11-29] MEDS: CITALOPRAM HYDROBROMIDE 20 MG TAB PO SCH (09:31)
[2017-11-29] MEDS: INSULIN LISPRO 100 UNIT/1 ML 3ML VIAL SQ SCH ×2 (09:32→12:14)
[2017-11-29] MEDS: LEVOFLOXACIN 500MG/D5W 100ML 100 ML IV SCH (09:32)
[2017-11-29 10:28] LABS: BAND NEUTROPHILS % (MANUAL) 2 %; EOSINOPHILS % (MANUAL) 8 % (0-7); LYMPHOCYTES % (MANUAL) 20 % (19-48); MONOCYTES % (MANUAL) 8 % (3.4-9.0); NEUTROPHILS % (MANUAL) 60 % (40-74); PLATELET ESTIMATE ADEQUATE; PLATELET MORPHOLOGY COMMENT NORMAL; RBC MORPHOLOGY COMMENT NORMAL
[2017-11-29 12:00] VITALS: BP 96/51
[2017-11-29] MEDS ORDERED: ACIDOPHILUS LA1 EACH PO (13:45)
[2017-11-29] MEDS ORDERED: OMEPRAZOLE40 MG PO (13:46)
[2017-11-29] MEDS ORDERED: GEMFIBROZIL600 MG PO (13:48)
[2017-11-29] MEDS ORDERED: FOLIC ACID1 MG PO (13:48)
[2017-11-29] MEDS ORDERED: FERROUS SULFAT325 M1 PO (13:50)
--- NOTE | 2017-11-29 15:00 | Discharge Summary ---
FINAL DIAGNOSES 1. Hypotension with near syncope, resolved. 2. Urinary tract infection. 3. Fever, resolved. 4. Sinus bradycardia, resolved. 5. Nephrolithiasis by history. Repeat ultrasound negative. 6. Dehydration. 7. Diabetes mellitus. 8. Normocytic anemia, positive for occult blood in stool. 9. Hypothyroidism. 10. Hyperlipidemia. 11. Hypertriglyceridemia. 12. Left otitis externa. 13. Fatty liver. BRIEF HOSPITAL COURSE: A 52-year-old female who was admitted from the ER. The patient was sent to the ER from the office of Dr. Edi Pineda, ENT specialist, for lightheadedness and hypotension. The patient was found having UTI at presentation, and did not have any leukocytosis, but she spiked fever the next day to 101.8. Blood culture and urine culture negative. Urinalysis showed UTI. The patient was continued on IV fluids. Her blood pressure was still systolic pressure low. She was on lisinopril, which was kept on hold. Dr. Pineda was consulted. He recommended need for ENT intervention at the present time. She has left otitis externa. She was prescribed Floxin otic by Dr. Pineda. The patient was continued empirically on IV antibiotics of Rocephin and levofloxacin. She is afebrile more than 24 hours. The patient asked to go home today. She has also drop in her hemoglobin. Stool for occult blood was positive. The patient does not have any abdominal pain, nausea or vomiting, black stool or blood in stool. She had EGD and colonoscopy in [address] Chacon, as per her statement, was normal at that time. The patient wants to go home today. The patient is discharged home with the instruction for avoidance of any NSAIDs and follow up with Dr. Chacon for anemia. The patient's hospitalization was otherwise uneventful during this hospital stay. PHYSICAL EXAMINATION VITAL SIGNS: Blood pressure 97/51, pulse 74, temperature 98.2, respirations 18, SPO2 of 100% on room air. GENERAL: Alert and oriented and in no acute distress. HEENT: No pallor. NECK: No JVD. No carotid bruits. No lymphadenopathy. No thyromegaly. HEART: S1 and S2 regular. No murmurs. LUNGS: Clear to auscultation. ABDOMEN: Soft and nontender. No palpable mass. EXTREMITIES: No edema, cyanosis or clubbing. NEUROLOGICAL: Motor grossly equal on both sides. LABORATORY DATA: WBC 7.87, hemoglobin 10, hematocrit 31, platelets 196, MCV 95, RDW 19, neutrophils 64, lymphocytes 22. PT 30, INR 1.16, PTT 24.9. Chemistry panel: Sodium 137, potassium 3.6, chloride 105, CO2 of 24, anion gap 8, BUN 13, creatinine 0.78, glucose 139, hemoglobin A1c 6.4. Lactic acid 10.5 and at presentation 19.9 . Calcium 8.0. Serum iron 18. TIBC is 277. Ferritin 436. Total bilirubin 0.2. AST 13, ALT 31, alkaline phosphatase 41. Troponin I is 0.001. CK MB 0.5. BNP 204. Total protein 5.0, albumin 2.0, globulin 3.3. Total cholesterol 167, triglycerides 573. HDL 9. Vitamin B12 of 719. Folate 12. TSH 1.99. SCG 1.23. A.m. cortisol level pending. Stool for occult blood positive. Influenza screening, A and B negative. Microbiology: Result of blood culture no growth in 48 hours. Urine culture no growth. Urinalysis: At presentation, protein 1+, negative for glucose, ketone, leukocyte esterase 1+, WBCs 11-20, RBCs 11-20. RADIOLOGICAL DATA: Chest x-ray single view at presentation negative for any acute abnormalities. Renal ultrasound normal kidneys with incidental finding of diffuse hepatic steatosis. CT of the head and brain without contrast done for syncopal episode, no intracranial abnormality. Carotid Doppler, official report pending. DISCHARGE MEDICATIONS: Please refer to the medication reconciliation sheet. DISCHARGE DIET: Diabetic and heart healthy diet. DISCHARGE ACTIVITY: As tolerated. FOLLOWUP INSTRUCTIONS: Infectious disease. Continue medication as per the discharge recommendations. Follow up with cardiology as available. Follow up with ENT specialist as available. Schedule with Dr. Chacon as an outpatient for anemia and positive occult blood in stool. Avoid OTC NSAIDs. Follow up with primary care physician, Dr. Derek Schwartz, in one week with home record of blood pressure. Monitor blood pressure and pulse b.i.d. at home. Hold blood pressure medication for now. Repeat CBC and BMP in one week. FANG GUTIERREZ MD Job#: [id number] [facility]
--- NOTE | 2017-11-29 16:05 | Consultation ---
DATE OF CONSULTATION: November 29, 2017 HOSPITAL CONSULTATION HISTORY OF PRESENT ILLNESS: I was kindly asked to see this 52-year-old woman, well known to me with outpatient evaluation and treatment. 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 She presented to the office with left-sided ear pain and was begun on topical therapy. She failed to respond and presented 2 days later and was noted to have altered mental status and subsequent blood pressure check showed her to be hypotensive. It was recommended she go directly to the emergency department for evaluation and treatment. This admission she has continued to have left-sided ear discomfort. Her history of present illness, past medical history, and past surgical history was reviewed in detail in the chart. PHYSICAL EXAMINATION HEENT: The right ash, external auditory canal, and tympanic membrane were normal. There was no postauricular pain, swelling, or tenderness. The left external auditory canal had [id number] amount of cerumen in the medial aspect. The visualized portion of the tympanic membrane was unremarkable. There was no postauricular pain, swelling, or tenderness. She has slight tenderness at the left temporomandibular joint. Nasal examination showed edema of the nasal mucosa. She had a long soft palate. There was minimal postnasal drainage. Oral cavity was otherwise normal. There was no palpable cervical adenopathy. ASSESSMENT: Otalgia. PLAN 1. Ofloxacin 5 drops in the left ear b.i.d. 2. No additional inpatient workup or therapy indicated at this time. 3. Patient is cleared for discharge from otolaryngology standpoint. Job#: [id number] ANNA
[2017-11-29] MEDS ORDERED: GEMFIBROZIL 600 MG TAB PO SCH (16:30)
[2017-11-29] MEDS ORDERED: OFLOXACIN 0.3% (OTIC SOL) 5 ML BTL OT SCH (17:00)
== END 2017-11-29 15:14 | disposition home or self-care (01) ==
LOC: ER 15:16 → ERHOLD 19:03 → MED/SURG 21:50
PROVIDERS: ADMIT Internal Medicine; ATTEND Internal Medicine
DX: A41.9 Sepsis, unspecified organism (principal); N39.0 Urinary tract infection, site not specified; E86.0 Dehydration; R05 Cough; I95.9 Hypotension, unspecified; E11.9 Type 2 diabetes mellitus without complications; I10 Essential (primary) hypertension; Z88.0 Allergy status to penicillin; Z88.2 Allergy status to sulfonamides; R55 Syncope and collapse; R00.1 Bradycardia, unspecified; H92.02 Otalgia, left ear; E03.9 Hypothyroidism, unspecified; N20.0 Calculus of kidney; D64.9 Anemia, unspecified
CPT/HCPCS: 36415 ×4; 70450; 71046; 76770; 80048; 80053 ×3; 80061; 81001; 82270; 82533; 82550; 82553; 82607; 82728; 82746; 82948 ×4; 83036; 83540; 83605 ×2; 83880; 84443; 84466; 84484; 84702; 85025 ×4; 85610; 85730; 87040 ×2; 87086; 87400; 93005; 93306; 93880; 97139; 99284; G0378 ×4; J0696 ×4; J1650 ×2; J1956 ×2; J2270; J2405; J7030 ×4

== ENCOUNTER 2020-05-13 18:14 | Emergency (ER) | payer SELFPAY ==
[~2020-05-13] VITALS: Ht 147.3 cm; Wt 77.6 kg
[~2020-05-13 18:14] MED LIST changes: +ACIDOPHILUS LA1 EACH PO; +CITALOPRAM HBR20 MG PO; +FERROUS SULFAT325 M1 PO; +FOLIC ACID1 MG PO; +GEMFIBROZIL600 MG PO; +LEVOTHYROXINE75 MCG PO; +LISINOPRIL10 MG PO; +METFORMIN HCL850 MG PO; +OMEPRAZOLE40 MG PO
[2020-05-13] MEDS ORDERED: ACETAMINOPHEN/CODEINE 300MG - 30MG TAB PO STA (18:24)
--- NOTE | 2020-05-13 18:26 | Emergency Department Note ---
History of Present Illnes History of Present Illness Chief Complaint: COVID PUI History of Present Illness This is a 55 year old female presents to the ED for SAGE myalgias, cough, n/v and fever. Seen at bedside Non-toxic appearing. . Historian: Patient Arrival Mode: Car Onset (how long ago): day(s) Severity: mild, moderate Onset quality: gradual Duration (how long): day(s) Timing of current episode: constant Progression: worsening Chronicity: new Context: Reports recent illness Relieving factors: none Exacerbating factors: none Associated symptoms: Reports cough, Reports fever/chills, Reports nausea/vomiting Treatments prior to arrival: none Past Medical/Family History Physician Review I have reviewed the patient's past medical and family history. Any updates have been documented here. Past Medical History Recent Fever: Yes Clinical Suspicion of Infectio: Yes New/Unexplained Change in Ment: No Past Medical History: Hyperlipedemia Other Medical History: HIGH CHOLESTEROL Other Surgery: BILATERAL KNEE SX COLONOSCOPY RIGHT WRIST SINUS SX Social History Smoking Cessation: Never Smoker Alcohol Use: None Any Illegal Drug Use: No Other Last Tetanus: UTD Review of Systems Review of Systems Constitutional: Reports fever EENTM: Reports no symptoms, Reports throat pain Cardiovascular: Reports no symptoms Respiratory: Reports cough Gastrointestinal: Reports no symptoms Genitourinary: Reports no symptoms Musculoskeletal: Reports no symptoms Integumentary: Reports no symptoms Neurological: Reports no symptoms Psychological: Reports no symptoms Endocrine: Reports no symptoms Hematological/Lymphatic: Reports no symptoms Physical Exam Related Data Allergies: Coded Allergies: Penicillins (Verified Allergy, Mild, ITCH, 05/13/20) Sulfa (Sulfonamide Antibiotics) (Verified Allergy, Mild, ITCH, 05/13/20) Triage Vital Signs Vital Signs Date Time Temp Pulse Resp B/P (MAP) Pulse Ox O2 Delivery O2 Flow Rate FiO2 05/13/20 18:17 102.9 109 20 118/78 97 Room Air Vital signs reviewed: Yes Physical Exam CONSTITUTIONAL Constitutional: Present well-developed, Present well-nourished HENT HENT: Present normocephalic, Present atraumatic, Present oropharynx clear/moist, Present nose normal HENT L/R: Present left ext ear normal, Present right ext ear normal EYES Eyes: Reports PERRL, Reports conjunctivae normal NECK Neck: Present ROM normal PULMONARY Pulmonary: Present effort normal, Present breath sounds normal CARDIOVASCULAR Cardiovascular: Present heart sounds normal, Present normal rate, Present tachycardia GASTROINTESTINAL Abdominal: Present soft, Present nontender, Present bowel sounds normal GENITOURINARY Genitourinary: Present exam deferred SKIN Skin: Present warm, Present dry MUSCULOSKELETAL Musculoskeletal: Present ROM normal NEUROLOGICAL Neurological: Present alert, Present oriented x 3, Present no gross motor or sensory deficits PSYCHOLOGICAL Psychological: Present mood/affect normal, Present judgement normal Results Imaging Imaging results reviewed: Yes Impressions [place] [address] Patient Name: KAMINI BAEZ MR #: [id number] : 1965 Age/Sex: 55/F Req #: [id number] Adm Physician: Ordered by: ROSI JERONIMO DO Report #: [id number] Location: ER Room/Bed: Procedure: [id number] DX/CHEST SINGLE (PORTABLE) Exam Date: 05/13/20 Exam Time: 2039 REPORT STATUS: Signed EXAMINATION: CHEST SINGLE (PORTABLE) INDICATION: Cough COMPARISON: Chest x-ray 11/26/2017 FINDINGS: TUBES and LINES: None. LUNGS: Normal lung volumes. Lungs are clear. No consolidations. PLEURA: No pleural effusion or pneumothorax. HEART AND MEDIASTINUM: The cardiomediastinal silhouette is unremarkable. BONES AND SOFT TISSUES: No acute osseous lesion. Soft tissues are unremarkable. UPPER ABDOMEN: No free air under the diaphragm. IMPRESSION: No acute thoracic radiographic abnormality. Signed by: Wallace Arnold DO on 05/13/2020 9:46 PM Dictated By: WALLACE ARNOLD DO 45 Transcribed By: LETTY on 05/13/202145 COPY TO: ROSI JERONIMO DO~ Critical Care Time Total Critical Care Time (min): 31 Critcal care necessary due to: sepsis Critcal care time spent by me: develop tx plan w patient/surrogate, examination of patient, obtaining hx from patient/surrogate, order/perform tx or interventions, order/review laboratory studies, order/review radiographic studies, pulse oximetry, re-evaluation of patient condition Assessment & Plan Medical Decision Making MDM Diff Dx : viral syndrome, Sepsis, COVID-19 infection , PNA Assessment & Plan Final Impression: (1) Person under investigation for COVID-19 (2) Severe sepsis Last Vital Signs Date Time Temp Pulse Resp B/P (MAP) Pulse Ox O2 Delivery O2 Flow Rate FiO2 05/13/20 18:17 102.9 109 20 118/78 97 Room Air Home Meds Active Scripts Tamsulosin Hcl* (FLOMAX*) 0.4 Mg Cap, 0.4 MG PO DAILY, #10 CAP 0 Refills Prov:XOCHITL REEDER MD 10/02/17 Ciprofloxacin Hcl (CIPRO) 500 Mg Tablet, 500 MG PO BID for 10 Days, #20 TAB 0 Refills Prov:XOCHITL REEDER MD 10/02/17 Promethazine Hcl (PROMETHAZINE HCL) 25 Mg Tablet, 25 MG PO Q6H PRN for NAUSEA, #20 TAB Prov:XOCHITL REEDER MD 10/02/17 Acetaminophen With Codeine (TYLENOL WITH CODEINE #3 TABLET) 1 Each Tablet, 300 MG PO Q6H for SEVERE PAIN, #15 TAB Prov:XOCHITL REEDER MD 10/02/17 Reported Medications Ferrous Sulfate (FERROUS SULFATE) 325 Mg Tablet.dr, 325 MG PO DAILY 11/29/17 Folic Acid (FOLIC ACID) 1 Mg Tablet, 1 MG PO DAILY, #30 TAB 11/29/17 Gemfibrozil (GEMFIBROZIL) 600 Mg Tablet, 600 MG PO BID 11/29/17 Omeprazole (OMEPRAZOLE) 40 Mg Capsule.dr, 40 MG PO DAILY 11/29/17 Lactobacillus Acidophilus (ACIDOPHILUS LACTOBACILLUS) 1 Each Capsule, 1 TAB PO BID 11/29/17 Citalopram Hydrobromide (CITALOPRAM HBR) 20 Mg Tablet, 10 MG PO DAILY, TAB 11/27/17 Levothyroxine Sodium (LEVOTHYROXINE SODIUM) 75 Mcg Tablet, 75 MCG PO DAILY, #30 TAB 11/27/17 Metformin Hcl (METFORMIN HCL) 850 Mg Tablet, 800 MG PO DAILY, #30 TAB 11/27/17 ROSI JERONIMO DO May 13, 2020 18:26
[2020-05-13] MEDS ORDERED: KETOROLAC TROMETHAMINE 60 MG/2 ML VIAL IM ONE (18:30)
--- OUTSIDE RECORDS SUMMARY | 2020-05-13 18:33 | XMS REPORT | Continuity of Care Document ---
Author Author [facility] t Organization [facility] Address [address] [place] [address] Phone Unavailable Care Team Providers Care Plumber Gasfitter Name Role Phone SKIP JC MD PCP Yeny JC Attphys Unavailable SWEET, A LAIRD Attphys Unavailable Yeny JC Admphys Unavailable Problems This patient has no known problems. Allergies, Adverse Reactions, Alerts Allergy Name Allergy Type Status Severity Reaction(s) Onset Date Inacti ve Date Treating Clinician Comments Source Penicillin Allergy to Substance Active Mild ITCH 2017-11-26 00:00:00 [facility] Sulfa (Sulfonamide Antibiotics) Allergy to Substance Active Mild ITCH 2017-11-26 00:00:00 [facility] Medications Ordered Medication Name Filled Medication Name Start Date Stop Da te Current Medication? Ordering Clinician Indication Dosage Frequency Signature (SIG) Comments Components Source Acetaminophen With Codeine (Tylenol With Codeine #3 Ta blet) 1 Each Tablet Acetaminophen With Codeine (Tylenol With Codeine #3 Tablet) 1 Each Tablet 2017-10-02 00:00:00 Yes Fanny Day Md 300 Every [address] [facility] Promethazine Hcl 25 Mg Tablet Promethazine Hcl 25 Mg Tablet 2017 00:00:00 Yes Fanny Day Md 25 Every 6 Hours as needed for Nausea [facility] Tamsulosin Hcl (Flomax*) 0.4 Mg Cap Tamsulosin Hcl (Flomax*) 0.4 Mg Cap 2017-10-02 00:00:00 Yes Fanny Day Md .4 Daily [facility] Ciprofloxacin Hcl (Cipro) 500 Mg Tablet Ciprofloxacin Hcl (C ipro) 500 Mg Tablet 2017-10-02 00:00:00 2017-10-12 00:00:00 No Fanny Day Md 500 Twice A Day [facility] Citalopram Hydrobromide (Citalopram Hbr) 20 Mg Tablet Citalopram Hydrobromide (Citalopram Hbr) 20 Mg Tablet Yes 10 Daily [facility] Ferrous Sulfate 325 Mg Tablet. Ferrous Sulfate 325 Mg Tablet. Yes 325 Daily [facility] Folic Acid 1 Mg Tablet Folic Acid 1 Mg Tablet Yes 1 Daily [facility] Gemfibrozil 600 Mg Tablet Gemfibrozil 600 Mg Tablet Yes [address] [facility] Lactobacillus Acidophilus (Acidophilus Lactobacillus) 1 Each Capsule Lactobacillus Acidophilus (Acidophilus Lactobacillus) 1 Each Capsule Yes 1 Twice A Day [facility] Levothyroxine Sodium 75 Mcg Tablet Levothyroxine Sodium 75 Mcg Tablet Yes 75 Daily [facility] Metformin Hcl 850 Mg Tablet Metformin Hcl 850 Mg Tablet Yes 800 Daily [facility] Omeprazole 40 Mg Capsule. Omeprazole 40 Mg Capsule. Yes 40 Daily [facility] Lisinopril 10 Mg Tablet, 12.5 Mg Oral Lisinopril 10 Mg Tablet, 1 2.5 Mg Oral 2017-11-29 00:00:00 No 12.5 Daily [facility] Levothyroxine Sodium 75 Mcg Tablet, 75 Mcg Oral Levoth yroxine Sodium 75 Mcg Tablet, 75 Mcg Oral 2017-11-27 00:00:00 No 75 [place] y [facility] Procedures Procedure Date / Time Performed Performing Clinician [facility] e Computed tomography of brain without radiopaque contrast 201 04-03-29 00:00:00 FANG GUTIERREZ [facility] Ultrasound, renal 2017-11-27 00:00:00 FANG GUTIERREZ [facility] X-ray of chest, two views 2017-11-26 00:00:00 JOSE L MADRIGAL V [facility] CT of abdomen and pelvis without contrast 2017-10-02 00:00:00 ASUNCION MASTERS [facility] Encounters Start Date/Time End Date/Time [facility] ID Source 2017-11-26 19:03:00 2017-11-29 15:14:00 Discharged Inpatient (obs) ER MEET [facility] [id number] [facility] 2017-10-02 06:31:00 2017-10-02 13:15:00 Departed Emergency Room ER ASUNCION [facility] [id number] [facility] Results Test Description Test Time Test Comments Results Result Comments Source Bedside Glucose 2017-11-29 12:31:00 Test Item Bedside Glucose (test code = 38636-3) 167 70-120 H Meter ID: [id number] Centertool Occult Blood 2017-11-29 10:34:00* Test Item Value Reference Range Interpretation Comments Stool Occult Blood (test code = 2335-8) POSITIVE NEGATIVE H [facility]Differential Total Cells Counted 2017-11-29 10:28:00* Test Item Value Reference Range Interpretation Comments Differential Total Cells Counted (test code = Differen tial Total Cells Counted) 100 [facility]Neutrophils % (Manual)2017-11-29 10:28:00 * Test Item Value Reference Range Interpretation Comments Neutrophils % (Manual) (test code = 10284-5) 60 40-74 [facility] HospitalBand Neutrophils %2017-11-29 10:28:00* Test Item Value Reference Range Interpretation Comments Band Neutrophils % (test code = 764-1) 2 [facility]Lymphocytes % (Manual)2017-11-29 10:28:00 * Test Item Value Reference Range Interpretation Comments Lymphocytes % (Manual) (test code = 737-7) 20 19-48 [facility]Monocytes % (Manual)2017-11-29 10:28:00* Test Item Value Reference Range Interpretation Comments Monocytes % (Manual) (test code = 744-3) 8 3.4-9.0 [facility]Eosinophils % (Manual)2017-11-29 10:28:00 * Test Item Value Reference Range Interpretation Comments Eosinophils % (Manual) (test code = 714-6) 8 0-7 H [facility] HospitalReactive Hkzdjmihzyd3541-90-97 10:28:00* Test Item Value Reference Range Interpretation Comments Reactive Lymphocytes (test code = 09946-0) 2 [facility] HospitalPlatelet Izwimopm0597-12-43 10:28:00* Test Item Value Reference Range Interpretation Comments Platelet Estimate (test code = 14292-4) ADEQUATE [facility] HospitalPlatelet Morphology Ryqpfua1919-46-91 10:28:00* Test Item Value Reference Range Interpretation Comments Platelet Morphology Comment (test code = 96881-3) NORMAL [facility] HospitalRed Cell Morphology Yczgsqz9615-63-54 10:28:00* Test Item Value Reference Range Interpretation Comments Red Cell Morphology Comment (test code = 6742-1) NORMAL [facility] Centerodium Vqqfu7627-96-90 08:00:00* Test Item Value Reference Range Interpretation Comments Sodium Level (test code = 2951-2) 137 136-145 [facility]Potassium Rghwg2296-18-49 08:00:00* Test Item Value Reference Range Interpretation Comments Potassium Level (test code = 2823-3) 3.6 3.5-5.1 [facility] HospitalChloride Ygiic5964-27-94 08:00:00* Test Item Value Reference Range Interpretation Comments Chloride Level (test code = 2075-0) 105 98-107 [facility] HospitalCarbon Dioxide Yqfpn6759-79-71 08:00:00* Test Item Value Reference Range Interpretation Comments Carbon Dioxide Level (test code = 2028-9) 24 22-29 [facility] HospitalAnion Uyq6534-60-64 08:00:00* Test Item Value Reference Range Interpretation Comments Anion Gap (test code = 97699-0) 11.6 8-16 [facility] HospitalBlood Urea Rdwvtdsq5814-33-92 08:00:00* Test Item Value Reference Range Interpretation Comments Blood Urea Nitrogen (test code = 3094-0) 13 7-26 [facility] HospitalCreatinine2018-03-31 08:00:00* Test Item Value Reference Range Interpretation Comments Creatinine (test code = 2160-0) 0.78 0.57-1.11 [facility] HospitalBUN/Creatinine Rbbmv1142-33-82 08:00:00* Test Item Value Reference Range Interpretation Comments BUN/Creatinine Ratio (test code = 3097-3) 17 6-25 [facility] HospitalEstimat Glomerular Filtration Rate 2017-11-29 08:00:00* Test Item Value Reference Range Interpretation Comments Estimat Glomerular Filtration Rate (test code = 02343-6) 60- >60 Ranges were taken from the National Kidney Disease Education Program and the [facility] Foundation literature.Reference ranges:60 or greater: Ebewzx74-43 ( for 3 consecutive months): Chronic kidney disease 15 or less: Kidney failureFormerly [facility] HospitalGlucose Vsykt4112-08-94 08:00:00* Test Item Value Reference Range Interpretation Comments Glucose Level (test code = ZMI3435) 139 74-118 H [facility] HospitalCalcium Dbvlb0734-57-92 08:00:00* Test Item Value Reference Range Interpretation Comments Calcium Level (test code = 21854-2) 8.0 8.4-10.2 L [facility] HospitalTotal Rtevuvdin8901-66-68 08:00:00* Test Item Value Reference Range Interpretation Comments Total Bilirubin (test code = 1975-2) 0.2 0.2-1.2 [facility] HospitalAspartate Amino Transf (AST/SGOT) 2017-11-29 08:00:00* Test Item Value Reference Range Interpretation Comments Aspartate Amino Transf (AST/SGOT) (test code = Aspartate Amino Transf (AST/SGOT)) 18 5-34 [facility] HospitalAlanine Aminotransferase (ALT/SGPT) 2017-11-29 08:00:00* Test Item Value Reference Range Interpretation Comments Alanine Aminotransferase (ALT/SGPT) (test code = 1742-6) 31 0-55 [facility] HospitalTotal Pdgpjpi2860-87-49 08:00:00* Test Item Value Reference Range Interpretation Comments Total Protein (test code = 2885-2) 5.3 6.5-8.1 L [facility] HospitalAlbumin2018-03-31 08:00:00* Test Item Value Reference Range Interpretation Comments Albumin (test code = 1751-7) 2.0 3.5-5.0 L [facility] HospitalGlobulin2018-03-31 08:00:00* Test Item Value Reference Range Interpretation Comments Globulin (test code = 10079-3) 3.3 2.3-3.5 [facility] HospitalAlbumin/Globulin Cnflw4893-24-78 08:00:00 * Test Item Value Reference Range Interpretation Comments Albumin/Globulin Ratio (test code = 1759-0) 0.6 0.8-2.0 L [facility] HospitalAlkaline Kwpalhfcxyg1102-53-47 08:00:00* Test Item Value Reference Range Interpretation Comments Alkaline Phosphatase (test code = 6768-6) 40 40-150 [facility] HospitalWhite Blood Frvuz4397-18-57 07:44:00* Test Item Value Reference Range Interpretation Comments White Blood Count (test code = 6690-2) 7.87 4.8-10.8 [facility] HospitalRed Blood Qmmtb7468-66-52 07:44:00* Test Item Value Reference Range Interpretation Comments Red Blood Count (test code = 789-8) 3.29 3.6-5.1 L [facility] HospitalHemoglobin2018-03-31 07:44:00* Test Item Value Reference Range Interpretation Comments Hemoglobin (test code = 28097-6) 10.5 12.0-16.0 L [facility] HospitalHematocrit2018-03-31 07:44:00* Test Item Value Reference Range Interpretation Comments Hematocrit (test code = 4544-3) 31.3 34.2-44.1 L [facility] HospitalMean Corpuscular Wzcilb5771-42-53 07:44:00* Test Item Value Reference Range Interpretation Comments Mean Corpuscular Volume (test code = 787-2) 95.1 81-99 [facility] HospitalMean Corpuscular Cnxxrntoic8518-84-64 07:44:00* Test Item Value Reference Range Interpretation Comments Mean Corpuscular Hemoglobin (test code = 785-6) 31.9 28-32 [facility] HospitalMean Corpuscular Hemoglobin Concent 2017-11-29 07:44:00* Test Item Value Reference Range Interpretation Comments Mean Corpuscular Hemoglobin Concent (test code = 786-4) 33.5 31-35 [facility] HospitalRed Cell Distribution Rgvei5271-90-73 07:44:00* Test Item Value Reference Range Interpretation Comments Red Cell Distribution Width (test code = 94469-3) 13.2 11.7 -14.4 [facility] HospitalPlatelet Dxplq4159-59-24 07:44:00* Test Item Value Reference Range Interpretation Comments Platelet Count (test code = 777-3) 196 140-360 [facility] HospitalNeutrophils (%) (Auto)2017-11-29 07:44:00 * Test Item Value Reference Range Interpretation Comments Neutrophils (%) (Auto) (test code = 57338-4) 64.9 38.7-80.0 [facility] HospitalLymphocytes (%) (Auto)2017-11-29 07:44:00 * Test Item Value Reference Range Interpretation Comments Lymphocytes (%) (Auto) (test code = 736-9) 22.6 18.0-39.1 [facility] HospitalMonocytes (%) (Auto)2017-11-29 07:44:00* Test Item Value Reference Range Interpretation Comments Monocytes (%) (Auto) (test code = 5905-5) 6.9 4.4-11.3 [facility] HospitalEosinophils (%) (Auto)2017-11-29 07:44:00 * Test Item Value Reference Range Interpretation Comments Eosinophils (%) (Auto) (test code = 713-8) 1.3 0.0-6.0 [facility] HospitalBasophils (%) (Auto)2017-11-29 07:44:00* Test Item Value Reference Range Interpretation Comments Basophils (%) (Auto) (test code = 706-2) 0.5 0.0-1.0 [facility] HospitalIM GRANULOCYTES %2017-11-29 07:44:00* Test Item Value Reference Range Interpretation Comments IM GRANULOCYTES % (test code = IM GRANULOCYTES %) 3.8 0.0- 1.0 H [facility] HospitalNeutrophils # (Auto)2017-11-29 07:44:00* Test Item Value Reference Range Interpretation Comments Neutrophils # (Auto) (test code = 751-8) 5.1 2.1-6.9 [facility] HospitalLymphocytes # (Auto)2017-11-29 07:44:00* Test Item Value Reference Range Interpretation Comments Lymphocytes # (Auto) (test code = 01768-1) 1.8 1.0-3.2 [facility] HospitalMonocytes # (Auto)2017-11-29 07:44:00* Test Item Value Reference Range Interpretation Comments Monocytes # (Auto) (test code = 742-7) 0.5 0.2-0.8 [facility] HospitalEosinophils # (Auto)2017-11-29 07:44:00* Test Item Value Reference Range Interpretation Comments Eosinophils # (Auto) (test code = 711-2) 0.1 0.0-0.4 [facility] HospitalBasophils # (Auto)2017-11-29 07:44:00* Test Item Value Reference Range Interpretation Comments Basophils # (Auto) (test code = 704-7) 0.0 0.0-0.1 [facility] HospitalAbsolute Immature Granulocyte (auto 2017-11-29 07:44:00* Test Item Value Reference Range Interpretation Comments Absolute Immature Granulocyte (auto (reginald t code = Absolute Immature Granulocyte (auto) 0.30 0-0.1 H [facility] HospitalLactic Acid Mvjsq5794-40-86 07:38:00* Test Item Value Reference Range Interpretation Comments Lactic Acid Level (test code = Lactic Acid Level) 10.5 4.5- 19.8 [facility] HospitalBlood Tilbdpr6708-84-72 07:22:00* Test Item Value Reference Range Interpretation Comments Blood Culture (test code = 39929113) NO GROWTH AFTER 24 HOURS [facility] HospitalVitamin B12 Buhfl5283-93-13 08:27:00* Test Item Value Reference Range Interpretation Comments Vitamin B12 Level (test code = 03557-1) 719 213-816 [facility] HospitalFolate2018-03-30 08:27:00* Test Item Value Reference Range Interpretation Comments Folate (test code = 2284-8) 12.0 7.0-15.4 [facility] HospitalFerritin2018-03-30 08:07:00* Test Item Value Reference Range Interpretation Comments Ferritin (test code = 2276-4) 436.86 4.63-204.00 H [facility] HospitalThyroid Stimulating Hormone (TSH) 2017-11-28 08:07:00* Test Item Value Reference Range Interpretation Comments Thyroid Stimulating Hormone (TSH) (test code = 40972-1) 1.999 0.350-4.940 [facility] HospitalHuman Chorionic Gonadotropin, Quant 2017-11-28 08:07:00* Test Item Value Reference Range Interpretation Comments Human Chorionic Gonadotropin, Quant (test code = 90162-8) 1.23 0-10 [facility] HospitalHemoglobin A1c Xafpeqt1289-60-67 08:04:00 * Test Item Value Reference Range Interpretation Comments Hemoglobin A1c Percent (test code = Hemoglobin A1c Percent) 6.4 4.0-7.0 [facility] HospitalIron Anxhy9176-83-73 07:46:00* Test Item Value Reference Range Interpretation Comments Iron Level (test code = 2498-4) 18 50-170 L [facility] HospitalTotal Iron Binding Mbisncli2567-03-75 07:46:00* Test Item Value Reference Range Interpretation Comments Total Iron Binding Capacity (test code = 2500-7) 277 261-4 78 [facility] HospitalPercent Iron Pvfiobhupf4492-08-52 07:46:00* Test Item Value Reference Range Interpretation Comments Percent Iron Saturation (test code = 2502-3) 6 15-50 L [facility] HospitalTransferrin2018-03-30 07:46:00* Test Item Value Reference Range Interpretation Comments Transferrin (test code = 3034-6) 198 180-382 [facility] HospitalTriglycerides Zaiqz5176-51-38 07:46:00* Test Item Value Reference Range Interpretation Comments Triglycerides Level (test code = 2571-8) 573 0-149 H [facility] HospitalCholesterol Chxug2242-12-94 07:46:00* Test Item Value Reference Range Interpretation Comments Cholesterol Level (test code = 2093-3) 167 0-199 Less than 200 mg/dL Low Qpgv103 - 239 mg/dL Borderline Rqod955 m g/dl and greater High Risk [facility] HospitalHDL Chsrpfehxbw9065-68-97 07:46:00* Test Item Value Reference Range Interpretation Comments HDL Cholesterol (test code = 2085-9) 9 40-60 L [facility] HospitalCholesterol/HDL Eaqbu2909-63-98 07:46:00 * Test Item Value Reference Range Interpretation Comments Cholesterol/HDL Ratio (test code = 9830-1) 18.6 3.0-3.6 H [facility] HospitalB-Type Natriuretic Njvxwhq3490-56-09 07:42:00* Test Item Value Reference Range Interpretation Comments B-Type Natriuretic Peptide (test code = 79540-9) 204.0 0-100 H [facility] HospitalBasophils % (Manual)2017-11-26 18:49:00* Test Item Value Reference Range Interpretation Comments Basophils % (Manual) (test code = 48277-8) 1 0-1.5 [facility] HospitalInfluenza Virus Types A,B Antigen 2017-11-26 17:36:00* Test Item Value Reference Range Interpretation Comments Influenza Virus Types A,B Antigen (test code = 41906-1) NEGATIVE NEGATIVE [facility] HospitalCreatine Kinase XL1644-05-58 17:35:00* Test Item Value Reference Range Interpretation Comments Creatine Kinase MB (test code = 90645-2) 0.50 0-5.0 [facility] HospitalTroponin T3055-51-14 17:35:00* Test Item Value Reference Range Interpretation Comments Troponin I (test code = MEO5340) -0.001 0-0.300 [facility] HospitalCreatine Dkqnpl2704-79-67 17:29:00* Test Item Value Reference Range Interpretation Comments Creatine Kinase (test code = 2157-6) 73 29-168 [facility] HospitalProthrombin Mdtt5591-28-46 17:21:00* Test Item Value Reference Range Interpretation Comments Prothrombin Time (test code = 5902-2) 13.9 11.9-14.5 [facility] HospitalProthromb Time International Ratio 2017-11-26 17:21:00* Test Item Value Reference Range Interpretation Comments Prothromb Time International Ratio (test code = 6301-6) 1.16 Oral Anticoagulant Therapy INR Values:1. Low Intensity Therapy 1.5 - 2.02 . Moderate Intensity Therapy 2.0 - 3.03. High Intensity Therapy(1) 2.5 - 3. 54. High Intensity Therapy(2) 3.0 - 4.05. Panic Value INR > 5.0 [facility] HospitalActivated Partial Thromboplast Time 2017-11-26 17:21:00* Test Item Value Reference Range Interpretation Comments Activated Partial Thromboplast Time (test code = 66657-0) 24.9 23.8-35.5 [facility] HospitalUrine FRW0319-58-19 16:58:00* Test Item Value Reference Range Interpretation Comments Urine WBC (test code = 5821-4) 11-20 0-5 H [facility] HospitalUrine FLD8486-60-21 16:58:00* Test Item Value Reference Range Interpretation Comments Urine RBC (test code = 96556-0) 11-20 0-5 H [facility] HospitalUrine Veozapsm3363-69-42 16:58:00* Test Item Value Reference Range Interpretation Comments Urine Bacteria (test code = 09035-1) MODERATE NONE H [facility] HospitalUrine Epithelial Fbinp3708-45-39 16:58:00 * Test Item Value Reference Range Interpretation Comments Urine Epithelial Cells (test code = 06424-4) MANY NONE [facility] HospitalUrine Ffvyy6515-41-95 16:42:00* Test Item Value Reference Range Interpretation Comments Urine Color (test code = 5778-6) YELLOW YELLOW [facility] HospitalUrine Ijvfdvc9858-61-47 16:42:00* Test Item Value Reference Range Interpretation Comments Urine Clarity (test code = 78136-8) HAZY CLEAR [facility] HospitalUrine Specific Fjvadtm1342-85-55 16:42:00 * Test Item Value Reference Range Interpretation Comments Urine Specific Union (test code = 5811-5) 1.010 1.010-1.02 5 [facility] HospitalUrine sR3961-25-46 16:42:00* Test Item Value Reference Range Interpretation Comments Urine pH (test code = 54416-2) 5 5-7 [facility] HospitalUrine Leukocyte Rwjguphy5896-76-22 16:42:00* Test Item Value Reference Range Interpretation Comments Urine Leukocyte Esterase (test code = 5799-2) 1+ NEGATIVE H [facility] HospitalUrine Jazhisa1142-11-05 16:42:00* Test Item Value Reference Range Interpretation Comments Urine Nitrite (test code = 74889-2) NEGATIVE NEGATIVE [facility] HospitalUrine Tqannsc3430-70-45 16:42:00* Test Item Value Reference Range Interpretation Comments Urine Protein (test code = 5804-0) 1+ NEGATIVE H [facility] HospitalUrine Glucose (UA)2017-11-26 16:42:00* Test Item Value Reference Range Interpretation Comments Urine Glucose (UA) (test code = 2349-9) NEGATIVE NEGATIVE [facility] HospitalUrine Odwhavc1987-33-91 16:42:00* Test Item Value Reference Range Interpretation Comments Urine Ketones (test code = 12799-6) NEGATIVE NEGATIVE [facility] HospitalUrine Mpgzthjvuvsv6017-18-74 16:42:00* Test Item Value Reference Range Interpretation Comments Urine Urobilinogen (test code = 58497-7) 0.2 0.2-1 [facility] HospitalUrine Rspqjnjjk0160-37-52 16:42:00* Test Item Value Reference Range Interpretation Comments Urine Bilirubin (test code = 1978-6) NEGATIVE NEGATIVE [facility] HospitalUrine Foyie4312-99-94 16:42:00* Test Item Value Reference Range Interpretation Comments Urine Blood (test code = 09174-3) 2+ NEGATIVE [facility] Centerodium Orudk2564-11-53 08:31:00* Test Item Value Reference Range Interpretation Comments Sodium Level (test code = 2951-2) 141 136-145 [facility] HospitalPotassium Yusux1190-38-80 08:31:00* Test Item Value Reference Range Interpretation Comments Potassium Level (test code = 2823-3) 3.7 3.5-5.1 [facility] HospitalChloride Guzcy4603-43-76 08:31:00* Test Item Value Reference Range Interpretation Comments Chloride Level (test code = 2075-0) 106 98-107 [facility] HospitalCarbon Dioxide Eoqhh0196-14-36 08:31:00* Test Item Value Reference Range Interpretation Comments Carbon Dioxide Level (test code = 2028-9) 24 22-29 [facility] HospitalAnion Pkf8608-06-38 08:31:00* Test Item Value Reference Range Interpretation Comments Anion Gap (test code = 73887-7) 14.7 8-16 [facility] HospitalBlood Urea Ynqqqkct4186-32-08 08:31:00* Test Item Value Reference Range Interpretation Comments Blood Urea Nitrogen (test code = 3094-0) 13 7-26 [facility] HospitalCreatinine2018-02-01 08:31:00* Test Item Value Reference Range Interpretation Comments Creatinine (test code = 2160-0) 0.86 0.57-1.11 [facility] HospitalBUN/Creatinine Vmcex3888-07-04 08:31:00* Test Item Value Reference Range Interpretation Comments BUN/Creatinine Ratio (test code = 3097-3) 15 6-25 [facility] HospitalEstimat Glomerular Filtration Rate 2017-10-02 08:31:00* Test Item Value Reference Range Interpretation Comments Estimat Glomerular Filtration Rate (test code = 90960-9) 60- >60 Ranges were taken from the National Kidney Disease Education Program and the [facility] literature.Reference ranges:60 or greater: Yuhdbr14-85 ( for 3 consecutive months): Chronic kidney disease 15 or less: Kidney failureFormerly [facility] HospitalGlucose Qkssx4052-93-67 08:31:00* Test Item Value Reference Range Interpretation Comments Glucose Level (test code = ZVJ3911) 178 74-118 H [facility] HospitalCalcium Pcobp0985-82-17 08:31:00* Test Item Value Reference Range Interpretation Comments Calcium Level (test code = 18479-6) 8.8 8.4-10.2 [facility]Tot[facility] Ybfkzpsuy6397-29-65 08:31:00* Test Item Value Reference Range Interpretation Comments Total Bilirubin (test code = 1975-2) 0.5 0.2-1.2 [facility] HospitalAspartate Amino Transf (AST/SGOT) 2017-10-02 08:31:00* Test Item Value Reference Range Interpretation Comments Aspartate Amino Transf (AST/SGOT) (test code = Aspartate Amino Transf (AST/SGOT)) 19 5-34 [facility] HospitalAlanine Aminotransferase (ALT/SGPT) 2017-10-02 08:31:00* Test Item Value Reference Range Interpretation Comments Alanine Aminotransferase (ALT/SGPT) (test code = 1742-6) 33 0-55 [facility] Ypfytkx5333-59-33 08:31:00* Test Item Value Reference Range Interpretation Comments Total Protein (test code = 2885-2) 7.3 6.5-8.1 [facility] HospitalAlbumin2018-02-01 08:31:00* Test Item Value Reference Range Interpretation Comments Albumin (test code = 1751-7) 3.8 3.5-5.0 [facility] HospitalGlobulin2018-02-01 08:31:00* Test Item Value Reference Range Interpretation Comments Globulin (test code = 73117-1) 3.5 2.3-3.5 [facility] HospitalAlbumin/Globulin Xmmjc9933-13-45 08:31:00 * Test Item Value Reference Range Interpretation Comments Albumin/Globulin Ratio (test code = 1759-0) 1.1 0.8-2.0 [facility] HospitalAlkaline Xovkuqgecih9612-99-65 08:31:00* Test Item Value Reference Range Interpretation Comments Alkaline Phosphatase (test code = 6768-6) 56 40-150 [facility] HospitalLipase2018-02-01 08:31:00* Test Item Value Reference Range Interpretation Comments Lipase (test code = 3040-3) 16 [facility] HospitalLipase2018-02-01 08:31:00* Test Item Value Reference Range Interpretation Comments Lipase (test code = 3040-3) [facility] HospitalHuman Chorionic Gonadotropin, Qual 2017-10-02 08:30:00* Test Item Value Reference Range Interpretation Comments Human Chorionic Gonadotropin, Qual (test code = 2118-8) NEGATIVE NEGATIVE [facility] Chorionic Gonadotropin, Qual 2017-10-02 08:30:00* Test Item Value Reference Range Interpretation Comments Human Chorionic Gonadotropin, Qual (test code = 2118-8) NEGATIVE NEGATIVE [facility] HospitalProthrombin Jhdc7107-30-59 08:27:00* Test Item Value Reference Range Interpretation Comments Prothrombin Time (test code = 5902-2) 12.7 11.9-14.5 [facility] HospitalProthromb Time International Ratio 2017-10-02 08:27:00* Test Item Value Reference Range Interpretation Comments Prothromb Time International Ratio (test code = 6301-6) 0.91 Oral Anticoagulant Therapy INR Values:1. Low Intensity Therapy 1.5 - 2.02 . Moderate Intensity Therapy 2.0 - 3.03. High Intensity Therapy(1) 2.5 - 3. 54. High Intensity Therapy(2) 3.0 - 4.05. Panic Value INR > 5.0 [facility] HospitalUrine LMD1226-60-13 08:24:00* Test Item Value Reference Range Interpretation Comments Urine WBC (test code = 5821-4) 6-10 0-5 H [facility] HospitalUrine MGW5165-35-54 08:24:00* Test Item Value Reference Range Interpretation Comments Urine RBC (test code = 34457-5) 50- 0-5 H [facility] HospitalUrine Lyltzdrw0352-43-33 08:24:00* Test Item Value Reference Range Interpretation Comments Urine Bacteria (test code = 65688-2) MODERATE NONE H [facility] HospitalUrine Epithelial Xzbdh4447-85-97 08:24:00 * Test Item Value Reference Range Interpretation Comments Urine Epithelial Cells (test code = 66256-3) FEW NONE [facility] HospitalUrine Amorphous Ywkpnfzx3305-13-86 08:24:00* Test Item Value Reference Range Interpretation Comments Urine Amorphous Sediment (test code = 8246-1) MODERATE FEW H [facility] HospitalUrine Amorphous Insygwer1405-91-19 08:24:00* Test Item Value Reference Range Interpretation Comments Urine Amorphous Sediment (test code = 8246-1) MODERATE FEW H [facility] HospitalWhite Blood Zqnek7306-85-95 08:13:00* Test Item Value Reference Range Interpretation Comments White Blood Count (test code = 6690-2) 9.61 4.8-10.8 [facility] HospitalRed Blood Ethxp5849-30-77 08:13:00* Test Item Value Reference Range Interpretation Comments Red Blood Count (test code = 789-8) 4.12 3.6-5.1 [facility] HospitalHemoglobin2018-02-01 08:13:00* Test Item Value Reference Range Interpretation Comments Hemoglobin (test code = 00337-2) 13.3 12.0-16.0 [facility] HospitalHematocrit2018-02-01 08:13:00* Test Item Value Reference Range Interpretation Comments Hematocrit (test code = 4544-3) 39.9 34.2-44.1 [facility] HospitalMean Corpuscular Uugvfy5647-77-94 08:13:00* Test Item Value Reference Range Interpretation Comments Mean Corpuscular Volume (test code = 787-2) 96.8 81-99 [facility] HospitalMean Corpuscular Zyfbokkxym7422-53-87 08:13:00* Test Item Value Reference Range Interpretation Comments Mean Corpuscular Hemoglobin (test code = 785-6) 32.3 28-32 H [facility] HospitalMean Corpuscular Hemoglobin Concent 2017-10-02 08:13:00* Test Item Value Reference Range Interpretation Comments Mean Corpuscular Hemoglobin Concent (test code = 786-4) 33.3 31-35 [facility] HospitalRed Cell Distribution Hwnhl5879-07-32 08:13:00* Test Item Value Reference Range Interpretation Comments Red Cell Distribution Width (test code = 35010-7) 12.8 11.7 -14.4 [facility] HospitalPlatelet Hkttb3545-63-43 08:13:00* Test Item Value Reference Range Interpretation Comments Platelet Count (test code = 777-3) 234 140-360 [facility] HospitalNeutrophils (%) (Auto)2017-10-02 08:13:00 * Test Item Value Reference Range Interpretation Comments Neutrophils (%) (Auto) (test code = 59437-6) 80.5 38.7-80.0 H [facility] HospitalLymphocytes (%) (Auto)2017-10-02 08:13:00 * Test Item Value Reference Range Interpretation Comments Lymphocytes (%) (Auto) (test code = 736-9) 12.8 18.0-39.1 L [facility] HospitalMonocytes (%) (Auto)2017-10-02 08:13:00* Test Item Value Reference Range Interpretation Comments Monocytes (%) (Auto) (test code = 5905-5) 4.6 4.4-11.3 [facility] HospitalEosinophils (%) (Auto)2017-10-02 08:13:00 * Test Item Value Reference Range Interpretation Comments Eosinophils (%) (Auto) (test code = 713-8) 1.0 0.0-6.0 [facility] HospitalBasophils (%) (Auto)2017-10-02 08:13:00* Test Item Value Reference Range Interpretation Comments Basophils (%) (Auto) (test code = 706-2) 0.5 0.0-1.0 [facility] HospitalIM GRANULOCYTES %2017-10-02 08:13:00* Test Item Value Reference Range Interpretation Comments IM GRANULOCYTES % (test code = IM GRANULOCYTES %) 0.6 0.0- 1.0 [facility] HospitalNeutrophils # (Auto)2017-10-02 08:13:00* Test Item Value Reference Range Interpretation Comments Neutrophils # (Auto) (test code = 751-8) 7.7 2.1-6.9 H [facility] HospitalLymphocytes # (Auto)2017-10-02 08:13:00* Test Item Value Reference Range Interpretation Comments Lymphocytes # (Auto) (test code = 59841-2) 1.2 1.0-3.2 [facility] HospitalMonocytes # (Auto)2017-10-02 08:13:00* Test Item Value Reference Range Interpretation Comments Monocytes # (Auto) (test code = 742-7) 0.4 0.2-0.8 [facility] HospitalEosinophils # (Auto)2017-10-02 08:13:00* Test Item Value Reference Range Interpretation Comments Eosinophils # (Auto) (test code = 711-2) 0.1 0.0-0.4 [facility] HospitalBasophils # (Auto)2017-10-02 08:13:00* Test Item Value Reference Range Interpretation Comments Basophils # (Auto) (test code = 704-7) 0.1 0.0-0.1 [facility] HospitalAbsolute Immature Granulocyte (auto 2017-10-02 08:13:00* Test Item Value Reference Range Interpretation Comments Absolute Immature Granulocyte (auto (reginald t code = Absolute Immature Granulocyte (auto) 0.06 0-0.1 [facility] HospitalUrine Vejuv9141-77-48 08:13:00* Test Item Value Reference Range Interpretation Comments Urine Color (test code = 5778-6) YELLOW YELLOW [facility] HospitalUrine Ejztgml8165-94-54 08:13:00* Test Item Value Reference Range Interpretation Comments Urine Clarity (test code = 78081-6) CLOUDY CLEAR H [facility] HospitalUrine Specific Rmpngzi2079-50-99 08:13:00 * Test Item Value Reference Range Interpretation Comments Urine Specific Union (test code = 5811-5) 1.030 1.010-1.02 5 H [facility] HospitalUrine gL3041-46-15 08:13:00* Test Item Value Reference Range Interpretation Comments Urine pH (test code = 08436-5) 5 5-7 [facility] HospitalUrine Leukocyte Wcxbhhgd1718-35-75 08:13:00* Test Item Value Reference Range Interpretation Comments Urine Leukocyte Esterase (test code = 5799-2) NEGATIVE NEGATIVE [facility] HospitalUrine Ndlhuhm8072-89-60 08:13:00* Test Item Value Reference Range Interpretation Comments Urine Nitrite (test code = 47792-8) NEGATIVE NEGATIVE [facility] HospitalUrine Susdvju6157-13-24 08:13:00* Test Item Value Reference Range Interpretation Comments Urine Protein (test code = 5804-0) 1+ NEGATIVE H [facility] HospitalUrine Glucose (UA)2017-10-02 08:13:00* Test Item Value Reference Range Interpretation Comments Urine Glucose (UA) (test code = 2349-9) NEGATIVE NEGATIVE [facility] HospitalUrine Rqbxirs1329-93-55 08:13:00* Test Item Value Reference Range Interpretation Comments Urine Ketones (test code = 07155-1) TRACE NEGATIVE H [facility] HospitalUrine Yjgcvguuunyi3012-28-13 08:13:00* Test Item Value Reference Range Interpretation Comments Urine Urobilinogen (test code = 87115-4) 0.2 0.2-1 [facility] HospitalUrine Eozwfwabc6306-72-64 08:13:00* Test Item Value Reference Range Interpretation Comments Urine Bilirubin (test code = 1978-6) NEGATIVE NEGATIVE [facility] HospitalUrine Qhiqm9633-02-18 08:13:00* Test Item Value Reference Range Interpretation Comments Urine Blood (test code = 78465-0) 4+ NEGATIVE H [facility] HospitalCT BRAIN WO [facility] [address] [place] [address] Patient Name: KAMINI BAEZ MR #: [id number] : 1965 Age/Sex: 52/F Req #: [id number] Adm Physician: MEET JC MD Ordered by: FANG GUTIERREZ MD Report #: [id number] Location: MED/SURG Room/Bed: [facility] Procedure: [id number] CT/CT BRAIN WO Exam Date: 11/27/17 Exam Time: 1029 REPORT STATUS: Signed Examination: CT BRAIN WITHOUT CONTRAST History:Syn cope. Dehydration. Generalized weakness. Comparison studies:None Techniqu e: Axial images were obtained from the skull base to the vertex. Coronal and sagittal images reconstructed from the axial data. Intravenous contrast: None Findings: Scalp: No abnormalities. Bones: No fractures, blastic or lytic lesions. Brain sulci: Appropriate for age. Ventricles: Normal in si ze and configuration. No hydrocephalus. Extra-axial space: No abnormaliti es. Parenchyma: No abnormal densities. No masses, hemorrhage, or acut e or chronic cortical based vascular insults.. Sellar/suprasellar region: N o abnormalities. Craniocervical junction: Patent foramen magnum. No Chiari one malformation. Incidental findings: None. Impression: No intr acranial abnormalities. Signed by: Dr. Ashlee Centeno M.D. on 11/27/2017 10:57 AM Dictated By: ASHLEE ALCALA MD 1058 Transcribed By: LETTY on 105 COPY TO: FANG GUTIERREZ MD RENAL RETROPERITONEAL COMP [place] [address] Patient Name: KAMINI BAEZ MR #: [id number] : 1965 Age/Sex: 52/F Req #: [id number] [facility] Physician: MEET JC MD Ordered by: FANG GUTIERREZ MD Report #: [id number] Location: MED/SURG Room/Bed: 108 Procedure: [id number] US/US RENAL RETROPERITONEAL COMP Exam Date: 11/27/17 Exam Time: 1050 REPORT STATUS: Signed PROCEDURE: US RETROPERITONEAL ( KID RENETTA ). COMPARISON: CT abdomen and pelvis 10/02/2017. INDICATIONS: UTI/STON E TECHNIQUE: Mccabe-scale and color sonographic images of the bilateral kidne ys and bladder where obtained in transverse and longitudinal planes. FI NDINGS: RIGHT KIDNEY: 10.9 x 5.4 x 5.8 cm, cortex 2.2 cm Cysts: None. Solid masses: None. Stones: None. Hydronephrosis: None. Echogenicity: N ormal. LEFT KIDNEY: 12.1 x 4.4 x 5.8 cm, cortex 1.6 cm Cysts: None. So lid masses: None. Stones: None. Hydronephrosis: None. Echogenicity: Normal . Bladder: Normal. Bilateral urinary jets are visualized. CONCLU BRAD: 1. Normal kidneys. 2. Incidental finding of diffuse hepatic steatos is. Dictated by: Prosper Bowen M.D. on 11/27/2017 at 12:32 Electronical ly approved by: Prosper Bowen M.D. on 11/27/2017 at 12:32 Dictated By: PROSPER BOWEN MD 1232 Transcribed By: ROCÍO on 11/27/17 1232 COPY TO: FANG GUTIERREZ MD CHEST 2 VIEWS [place] [address] Patient Name: KAMINI BAEZ MR #: [id number] : 1965 Age/Sex: 52/F Req #: [id number] Adm Physician: Ordered by: JOSE L MADRIGAL MD Report #: [id number] Location: ER Room/Bed: Procedure: [id number] DX/CHEST 2 VIEWS Exam Date: 11/26/17 Exam Time: 1602 REPORT STATUS: Signed PROCEDURE: X-RAY CHEST, TWO VIEWS COMPARISON: None. INDICATIONS: LOW BLOOD PRESSURE FINDINGS: LUNGS: Small focus of atelectasis/scar in the base of the right lung. No consolidation or mass. Vascular markings are nor mal. PLEURA: No effusions or pneumothorax. HEART T MEDIASTIN UM: The heart is within normal size-limits. BONES T SOFT TISSUES: No focal osseous lesions. Soft tissues are unremarkable. CONCLUSION: No acute thoracic abnormality. Dictated by: Mariya Castro on 11/26/2017 at 16:46 Electronically approved by: Mariya Castro on 11/26/2017 at 16:46 Dictated By: CRISTINE KING MD ectronically Signed By: CRISTINE KING MD on 11/26/171645 Transcribed By: Lily BOTELLO on 11/26/171645 COPY TO: JOSE L MADRIGAL MD CT ABDOMEN/PELVIS [place] [address] Patient Name: KAMINI BAEZ MR #: [id number] : 1965 Age/Sex: 52/F Req #: [id number] Adm Physician: Ordered by: ASUNCION BARRETT MD Report #: [id number] Location: ER Room/Bed: Procedure: [id number] CT/CT ABDOMEN/PELVIS WO Exam Da te: 10/02/17 Exam Time: 0750 REPORT STATUS: Sig julian PROCEDURE: CT ABDOMEN AND PELVIS WITHOUT CONTRAST COMPARISON: None . INDICATIONS: Right flank pain TECHNIQUE: Stone protocol Volumetric CT abdomen and pelvis. No intravenous or enteric contrast. Multiplanar reformat jluis images. DLP: 587.38 FINDINGS: Mild bibasilar subsegmental atelect asis. Mild vascular congestion. No pleural effusions. Normal heart size. Liver: Midclavicular craniocaudal span 19 cm. Otherwise, normal. Gallbladder: Normal Pancreas: Normal Spleen: Normal Adrenal glands: Normal Urin marilee bladder: Decompressed by Grover catheter Uterus and adnexa: Calcified uteri ne fibroids. Otherwise, normal Kidneys: Right: Mild caliectasis and trac e hydroureter. 3 mm stone in the distal right ureter (image 153, series 3) ap proximately 2.5 cm from the urinary bladder. The stone does not completely fi ll the ureter, suggesting stone fragmentation. Otherwise, normal. No addition al stones. Left: Normal. No stones. Bowel: Normal caliber. Normal sivakumar endix. Peritoneum: Normal Skeleton: Intact. Multilevel degenerative disc disease most notable at L2-L3 there is near-complete loss of disc space heig ht. Soft tissues: Normal CONCLUSION: 1. 3 mm stone in the distal rig ht ureter. The stone does not completely fill the ureter, suggesting stone fr agmentation. 2. Hepatomegaly. Dictated by: Liliana Gregory M.D. o n[place] 10/02/2017 at 8:33 Electronically approved by: Liliana Gregory M.D. on 10/02/2017 at 8:33 Dictated By: LILIANA GREGORY MD [facility] Signed By: LILIANA GREGORY MD on 02/09/18 832 Transcribed By: ROCÍO on 0 10/02/17832 COPY TO: ASUNCION BARRETT MD
[2020-05-13] MEDS ORDERED: ACETAMINOPHEN/CODEINE 300MG - 30MG TAB ONE (18:37)
[2020-05-13] MEDS ORDERED: KETOROLAC TROMETHAMINE 60 MG/2 ML VIAL ONE (18:37)
[2020-05-13] MEDS ORDERED: ONDANSETRON HCL 4 MG ORAL DISINTEGRATING TAB PO ONE (18:45)
[2020-05-13] MEDS ORDERED: ONDANSETRON HCL INJ 2MG/ML 2ML 2 MG/ML VIAL IV STA (18:54)
[2020-05-13 19:26] LABS: BASOPHILS % 0.8 % (0.0-1.0); EOSINOPHILS % 0.6 % (0.0-6.0); HEMATOCRIT 42.2 % (34.2-44.1); LYMPHOCYTES # (AUTO) 0.8 (1.0-3.2); LYMPHOCYTES % 16.3 % (18.0-39.1); MEAN CORPUSCULAR HEMOGLOBIN 30.3 pg (28-32); MEAN CORPUSCULAR HGB CONC 33.2 g/dL (31-35); MEAN CORPUSCULAR VOLUME 91.3 fL (81-99); MONOCYTES # (AUTO) 0.2 (0.2-0.8); MONOCYTES % 4.9 % (4.4-11.3); NEUTROPHILS # (AUTO) 3.8 (2.1-6.9); NEUTROPHILS % 76.8 % (38.7-80.0); PLATELET COUNT 188 x10e3/uL (140-360); RED BLOOD COUNT 4.62 x10e6/uL (3.6-5.1)
[2020-05-13] MEDS ORDERED: LEVOFLOXACIN 750MG/D5W 150ML 150 ML IV STA (19:47)
[2020-05-13 19:52] LABS: ALANINE AMINOTRANSFERASE 78 IU/L (0-55); ALBUMIN 4.6 g/dL (3.5-5.0); ALBUMIN/GLOBULIN RATIO 1.4 (0.8-2.0); ALKALINE PHOSPHATASE 61 IU/L (40-150); ANION GAP 19.7 mmol/L (8-16); BLOOD UREA NITROGEN 11 mg/dL (7-26); BUN/CREATININE RATIO 13 (6-25); CALCIUM 9.1 mg/dL (8.4-10.2); CARBON DIOXIDE 20 mmol/L (22-29); CHLORIDE 98 mmol/L (98-107); CREATININE, SERUM 0.84 mg/dL (0.57-1.11); EST GLOMERULAR FILTRATION RATE > 60 ML/MIN (60-); GLUCOSE 119 mg/dL (74-118); POTASSIUM 3.7 mmol/L (3.5-5.1); SODIUM 134 mmol/L (136-145)
[2020-05-13 20:13] LABS: CLARITY,URINE HAZY (CLEAR); COLOR,URINE YELLOW (YELLOW); KETONES,URINE NEGATIVE (NEGATIVE); LEUKOCYTE ESTERASE ,URINE NEGATIVE (NEGATIVE); NITRITE,URINE NEGATIVE (NEGATIVE); PROTEIN,URINE DIPSTICK 1+ (NEGATIVE); URINE UROBILINOGEN 2 mg/dL (0.2 - 1)
[2020-05-13 20:14] LABS: BILIRUBIN,URINE NEGATIVE (NEGATIVE)
[2020-05-13 20:18] LABS: WBC,URINE (MAN) >50 /HPF (0-5)
[2020-05-13 20:19] LABS: EPITHELIAL CELLS,URINE MANY /LPF
[2020-05-13 20:20] LABS: BACTERIA,URINE MODERATE /HPF
--- NOTE | 2020-05-13 20:53 | NUR ---
PT DENIES NEED FOR ZOFRAN AT THIS TIME
--- NOTE | 2020-05-13 21:50 | Diagnostic Imaging Report ---
EXAMINATION: CHEST SINGLE (PORTABLE) INDICATION: Cough COMPARISON: Chest x-ray 11/26/2017 FINDINGS: TUBES and LINES: None. LUNGS: Normal lung volumes. Lungs are clear. No consolidations. PLEURA: No pleural effusion or pneumothorax. HEART AND MEDIASTINUM: The cardiomediastinal silhouette is unremarkable. BONES AND SOFT TISSUES: No acute osseous lesion. Soft tissues are unremarkable. UPPER ABDOMEN: No free air under the diaphragm. IMPRESSION: No acute thoracic radiographic abnormality. Signed by: Wallace Arnold DO on 05/13/2020 9:46 PM
[2020-05-13 22:15] VITALS: BP 111/69
== END 2020-05-13 23:04 | disposition home or self-care (01) ==
LOC: ER 18:20
DX: A41.9 Sepsis, unspecified organism (principal); R50.9 Fever, unspecified; R11.2 Nausea with vomiting, unspecified; R51 Headache; E78.5 Hyperlipidemia, unspecified; Z11.59 Encounter for screening for other viral diseases
CPT/HCPCS: 36415; 71045; 80053; 81001; 83605; 85025; 87040; 99283; J1885; J2405; U0002

== ENCOUNTER → 2024-06-17 | Outpatient (REF) | payer OTHER | LOC: DX 13:37 | PROVIDERS: ATTEND Internal Medicine | DX: Z13.820 Encounter for screening for osteoporosis (principal) | CPT/HCPCS: 77080 ==